=== PATIENT | male | born 1970 | race Caucasian/White ===

== ENCOUNTER 2017-05-30 09:11 | Observation (INO) | payer MEDICAID ==
[2017-05-30] VITALS (10 sets, daily range): BP systolic 110–149; BP diastolic 77–99; PULSE 56–70; RESP 18; TEMP 96.9–97.9; O2SAT 90–98
[~2017-05-30] VITALS: Ht 175.3 cm; Wt 89.8 kg
[~2017-05-30 09:11] MED LIST: TRAM50 PO; WARF7.5T4 PO
--- NOTE | 2017-05-30 09:15 | PD ---
HPI Chief Complaint: Neuro Symptoms/ Deficits Time Seen by Provider: 09:15 Travel History International Travel<30 days: No Contact w/Intl Traveler<30days: No Traveled to known affect area: No History of Present Illness HPI 47-year-old male came to the emergency room looking very anxious and teary with his mother saying that this morning after he had a bowel movement he just started feeling very different. He could not really describe very well how he was feeling. He said he felt lightheaded/dizzy and weak. He says he did not feel like his normal self. He thought he was having an "attack". He asked his girlfriend to call his mother with eventually brought him in. Upon asking patient denied any unilateral weakness. No issues with his speech that I could understand from either him or his mother. The triage nurse was having difficulty understanding his chief complain since patient could not really explain it very well and he was brought in emergently as a possible neuro symptoms. However when I started examining him and talking to him he was just very anxious and emotionally labile. He did say he had a lot of stress mainly from work and home. He smokes cigarettes occasionally and this morning he smoked a joint for the symptoms started. However he says this is something he does routinely and has been doing it for many years. He was getting ready to go to work. Patient was reminded by his mother that he had a TIA a few years ago. He is on Coumadin and sees Dr. Botello from hematology who checks his INR. He does not have a PMD. [facility] Past Medical History Narrative Medical List of his past medical, surgical, social and family history was reviewed from the nursing note. Hx Anticoagulant Therapy: Yes (COUMADIN) Anemia: Yes Autoimmune Disease: No Blood Disorders: Yes (FACTOR v LEIDEN) Cancer: No Cardiovascular Problems: Yes Chest Pain: No Congestive Heart Failure: No Cerebrovascular Accident: Yes Diabetes: No Diminished Hearing: No Deep Vein Thrombosis: Yes (December 2012) Endocrine: No Glaucoma: No Genitourinary: No Hepatitis: No Hiatal Hernia: No Hypertension: Yes Immune Disorder: No Musculoskeletal: No Neurologic: Yes Psychiatric: No Reproductive: No Respiratory: Yes (SLEEP APNEA) Sleep Apnea: Yes Thyroid Disease: No PNEUMOCCOCAL Vaccine (Year): 2 Past Surgical History Abdominal Surgery: Yes (HERNIA REPAIR-Inguinal) Appendectomy: Yes Cardiac Surgery: No Ear Surgery: No Eye Surgery: No Oral Surgery: No Pacemaker: No Thoracic Surgery: No Other Surgery: Yes (RIGHT TOES AND PARTIAL FOOT AMPUTATION) Social History Alcohol Use: Yes (5/DAY "ON WEEKENDS") Tobacco Use: Yes (ONE PPD) Substance Use: Yes (MARIJUANA) Allergies-Medications (Allergen,Severity, Reaction): Coded Allergies: Penicillin (Verified Allergy, Mild, RASH, 05/30/17) Comments List of his allergies reviewed from the nursing note. Reported Meds & Prescriptions Reported Meds & Active Scripts Active Reported Slow Release Iron ER (Ferrous Sulfate) 50 Mg Tab 50 Mg PO DAILY Centrum (Multiple Vitamins W/ Minerals) 1 Chew 1 Tab CHEW DAILY Coumadin (Warfarin) 7.5 Mg Tab 7.5 Mg PO DAILY Narrative Medication List of his home medications reviewed from the nursing note. Review of Systems Except as stated in HPI: all other systems reviewed are Neg Physical Exam Narrative GENERAL: Awake, alert, anxious, mild distress SKIN: Focused skin assessment warm/dry. HEAD: Atraumatic. Normocephalic. EYES: Pupils equal and round. No scleral icterus. No injection or drainage. ENT: No nasal bleeding or discharge. Mucous membranes pink and moist. NECK: Trachea midline. No JVD. CARDIOVASCULAR: Regular rate and rhythm. No murmur appreciated. RESPIRATORY: No accessory muscle use. Clear to auscultation. Breath sounds equal bilaterally. GASTROINTESTINAL: Abdomen soft, non-tender, nondistended. Hepatic and splenic margins not palpable. MUSCULOSKELETAL: No obvious deformities. No clubbing. No cyanosis. No edema. Partial foot amputation. NEUROLOGICAL: Awake and alert. No obvious cranial nerve deficits. Motor grossly within normal limits. Normal speech. NIH stroke score of 0 PSYCHIATRIC: Patient is very anxious and emotionally labile. Teary-eyed Data Data Last Documented VS Vital Signs Date Time Temp Pulse Resp B/P Pulse Ox O2 Delivery O2 Flow Rate FiO2 05/30/17 10:34 60 18 119/87 97 Room Air 05/30/17 09:28 97.9 Orders Complete Blood Count With Diff (05/30/17 09:29) Comprehensive Metabolic Panel (05/30/17 09:29) Creatine Kinase (Cpk) (05/30/17 09:29) Prothrombin Time / Inr (Pt) (05/30/17 09:29) Troponin I (05/30/17 09:29) Thyroid Stimulating Hormone (05/30/17 09:29) Ua Includes Microscopic (05/30/17 09:29) Ct Brain W/O Iv Contrast(Rout) (05/30/17 09:29) Blood Glucose (05/30/17 09:29) Ecg Monitoring (05/30/17 09:29) Iv Access Insert/Monitor (05/30/17 09:29) Oximetry (05/30/17 09:29) Sodium Chloride 0.9% Flush (Ns Flush) (05/30/17 09:30) Sodium Chlor 0.9% 1000 Ml Inj (Ns 1000 M (05/30/17 09:29) Alprazolam (Xanax) (05/30/17 09:30) Drug Screen, Random Urine (05/30/17 09:30) Alcohol (Ethanol) (05/30/17 09:45) Mra Brain W/O Contrast (Cow) (05/30/17 ) Admit Order (Ed Use Only) (05/30/17 10:40) Mri Brain W/O Contrast (05/30/17 ) Labs Laboratory Tests Test 05/30/17 05/30/17 05/30/17 09:45 10:15 10:20 White Blood Count 7.4 TH/MM3 Red Blood Count 5.35 MIL/MM3 Hemoglobin 15.3 GM/DL Hematocrit 46.2 % Mean Corpuscular Volume 86.3 FL Mean Corpuscular Hemoglobin 28.6 PG Mean Corpuscular Hemoglobin 33.1 % Concent Red Cell Distribution Width 13.9 % Platelet Count 254 TH/MM3 Mean Platelet Volume 9.2 FL Neutrophils (%) (Auto) 63.7 % Lymphocytes (%) (Auto) 21.5 % Monocytes (%) (Auto) 9.1 % Eosinophils (%) (Auto) 5.0 % Basophils (%) (Auto) 0.7 % Neutrophils # (Auto) 4.6 TH/MM3 Lymphocytes # (Auto) 1.6 TH/MM3 Monocytes # (Auto) 0.7 TH/MM3 Eosinophils # (Auto) 0.4 TH/MM3 Basophils # (Auto) 0.1 TH/MM3 CBC Comment DIFF FINAL Differential Comment Prothrombin Time 21.1 SEC Prothromb Time International 1.9 RATIO Ratio Sodium Level 140 MEQ/L Potassium Level 4.1 MEQ/L Chloride Level 110 MEQ/L Carbon Dioxide Level 24.2 MEQ/L Anion Gap 6 MEQ/L Blood Urea Nitrogen 26 MG/DL Creatinine 1.10 MG/DL Estimat Glomerular Filtration 71 ML/MIN Rate Random Glucose 101 MG/DL Calcium Level 8.3 MG/DL Total Bilirubin 0.4 MG/DL Aspartate Amino Transf 47 U/L (AST/SGOT) Alanine Aminotransferase 27 U/L (ALT/SGPT) Alkaline Phosphatase 58 U/L Total Creatine Kinase 240 U/L Troponin I LESS THAN 0.02 NG/ML Total Protein 7.2 GM/DL Albumin 3.4 GM/DL Thyroid Stimulating Hormone 0.691 uIU/ML 3rd Gen Ethyl Alcohol Level LESS THAN 3 MG/DL [facility] Medical Decision Making Medical Screen Exam Complete: Yes Emergency Medical Condition: Yes Medical Record Reviewed: Yes Interpretation(s) Twelve-lead EKG is reviewed by me. Normal sinus rhythm, normal axis, call T waves, first-degree AV block. Heart rate of 66 bpm. Differential Diagnosis TIA, CVA, intracranial bleed, anxiety Narrative Course 10:33 AM since patient appeared to be so anxious I offered him some Xanax which he agreed to. CT scan was done and was resulted as encephalomalacia but stable from last CT on the left parietal hemisphere. I went back to discuss this with the patient and at this point it was established that patient did have a stroke and not a TIA somewhere between [id number]. He remembered and also his mother that his entire right side was very weak that time. I also read the report from Dr. Botello who is the patient's senior payroll manager and the reason patient is on Coumadin is for factor V Leiden deficiency and history of recurrent arterial thrombosis. In fact that was the reason he lost part of his right foot. His last INR in March was 2.2. Today his INR is 1.9. Given all this his condition seems concerning and I decided to admit him for observation. I put a call out for his heme oncologist as well as our neurologist. 10:47 AM I just spoke with Dr. Botello who happens to be his oncologist and knows him in detail. But he said that he hasn't seen him in the past few months. Patient does have history of antiphospholipid antibody as well which does put him at a high risk for cerebrovascular disease. He did have history of cocaine abuse in the past. Patient still has not given us a urine sample. I 've asked the nurse to straight catheter him. Awaiting for Dr. Esquivel to call back. My question to him would be if the patient is a candidate for heparinization since his INR is subtherapeutic. The hospitalist has accepted this patient for observation. 11:41 AM I discussed the case with Dr. Esquivel from neurology who just called back. As per him it would be okay to start the patient on heparin drip as per the stroke protocol but no bolus. This has been ordered by me. He wanted Dr. Botello to be officially consult it as well. He agreed with the MRI and he'll follow-up on the patient and the MRI result. He wanted the patient to get Coumadin at 10 mg he the INR tomorrow. I'll convey this to the hospitalist. Critical Care Narrative Aggregate critical care time was 30 minutes. Time to perform other separately billable procedures was not included in the critical care time. My time did not include minutes spent treating any other patients simultaneously or on activities that did not directly contribute to the patient's treatment. The services I provided to this patient were to treat and/or prevent clinically significant deterioration that could result in: TIA, heparin bolus as per the stroke protocol I provided critical care services requiring my management, as noted below: Chart data review, documentation time, medication orders and management, vital sign assessments/reviewing monitor data, ordering and reviewing lab tests, ordering and interpreting/reviewing x-rays and diagnostic studies, care of the patient and discussion of the patient with the admitting physicians. Procedures EKG Prior to Arrival: No Physician Communication Physician Communication Dr. Botello, Dr. Esquivel Diagnosis Primary Impression: TIA (transient ischemic attack) Qualified Code: G45.9 - Transient cerebral ischemia, unspecified type Admitting Information Admitting Physician Requests: Observation Anthony Gibson MD May 30, 2017 09:15
[2017-05-30] MEDS ORDERED: SODIUM CHLOR 0.9% 1000 ML INJ 1,000 ML IV SCH (09:29)
[2017-05-30] MEDS ORDERED: ALPRAZolam 0.5 MG TAB PO ONE (09:30)
[2017-05-30] MEDS ORDERED: SODIUM CHLORIDE 0.9% FLUSH 5 ML FLUSH IV FLUSH PRN (09:30)
[2017-05-30] MEDS ORDERED: CENTCHW4 CHEW (09:32)
[2017-05-30] MEDS ORDERED: COUM7.5T PO (09:32)
[2017-05-30] MEDS ORDERED: SLOW50TA PO (09:32)
[2017-05-30 10:06] LABS: AUTOMATED NEUTROPHIL # 4.6 TH/MM3 (1.8-7.7); BASOPHIL # 0.1 TH/MM3 (0-0.2); BASOPHIL % 0.7 % (0.0-2.0); EOSINOPHIL # 0.4 TH/MM3 (0-0.4); HEMATOCRIT 46.2 % (39.0-51.0); HEMO FLAGS DIFF FINAL; LYMPH % 21.5 % (9.0-44.0); LYMPHOCYTE # 1.6 TH/MM3 (1.0-4.8); MEAN CELL VOLUME 86.3 FL (80.0-100.0); MEAN CORPUSCULAR HEMOGLOBIN 28.6 PG (27.0-34.0); MEAN CORPUSCULAR HGB CONC 33.1 % (32.0-36.0); MONO % 9.1 % (0.0-8.0); NEUT % 63.7 % (16.0-70.0); PLATELET COUNT 254 TH/MM3 (150-450); RED BLOOD COUNT 5.35 MIL/MM3 (4.50-5.90); RED CELL DISTRIBUTION WIDTH 13.9 % (11.6-17.2); WHITE BLOOD COUNT 7.4 TH/MM3 (4.0-11.0)
--- NOTE | 2017-05-30 10:14 | RADRPT ---
EXAM DATE/TIME: 05/30/2017 09:51 [facility] COMPARISON: CT BRAIN W/O CONTRAST, October 10, 2015, 9:53. INDICATIONS : Altered mental status. RADIATION DOSE: 63.45 CTDIvol (mGy) MEDICAL HISTORY : Cerebrovascular disease. Deep venous thrombosis. Hypertension. SURGICAL HISTORY : Appendectomy. ENCOUNTER: Initial ACUITY: 2 days PAIN SCALE: 2/10 LOCATION: cranial TECHNIQUE: Multiple contiguous axial images were obtained of the head. Using automated exposure control and adj ustment of the mA and/or kV according to patient size, radiation dose was kept as low as reasonably a chievable to obtain optimal diagnostic quality images. DICOM format image data is available electro nically for review and comparison. FINDINGS: CEREBRUM: Stable encephalomalacia in the left posterior parietal high convexities The ventricles are normal for age. No evidence of midline shift, mass lesion, hemorrhage or acute infarction. No extra-axial flu id collections are seen. POSTERIOR FOSSA: The cerebellum and brainstem are intact. The 4th ventricle is midline. The cerebellopontine angle i s unremarkable. EXTRACRANIAL: The visualized portion of the orbits is intact. SKULL: The calvaria is intact. No evidence of skull fracture. CONCLUSION: 1. Stable region of encephalomalacia in the left posterior parietal high convexities consistent with old infarct. 2. Otherwise, no acute intracranial abnormality. Sd Hall MD on May 30, 2017 at 10:09 Board Certified Radiologist. This report was verified electronically.
[2017-05-30 10:25] LABS: CHLORIDE 110 MEQ/L (98-107); SODIUM (NA) 140 MEQ/L (136-145)
[2017-05-30 10:29] LABS: ANION GAP 6 MEQ/L (5-15); BICARBONATE 24.2 MEQ/L (21.0-32.0); BLOOD UREA NITROGEN 26 MG/DL (7-18)
[2017-05-30 10:31] LABS: INTERNATIONAL NORMALIZED RATIO 1.9 RATIO; PROTHROMBIN TIME - PATIENT 21.1 SEC (9.8-11.6)
[2017-05-30 10:32] LABS: ALT (GPT) 27 U/L (12-78); AST (GOT) 47 U/L (15-37); GLOMERULAR FILTRATION RATE 71 ML/MIN (>89)
[2017-05-30 10:33] LABS: TOTAL BILIRUBIN ADULT 0.4 MG/DL (0.2-1.0)
[2017-05-30 10:34] LABS: POTASSIUM 4.1 MEQ/L (3.5-5.1)
[2017-05-30 10:35] LABS: ALKALINE PHOSPHATASE 58 U/L (45-117); CREATINE KINASE 240 U/L (39-308)
[2017-05-30 11:07] LABS: BLOOD, URINE NEG (NEG); GLUCOSE,URINE NEG (NEG); KETONE, URINE NEG (NEG); NITRITE,URINE NEG (NEG); PH, URINE 6.5 (5.0-8.5)
[2017-05-30 11:13] LABS: URINE COLOR YELLOW (YELLW/STRAW); WBC, URINE 0-2 /hpf (0-5)
[2017-05-30 11:14] LABS: SQUAMOUS EPITHELIAL CELL URINE 0-5 /hpf (0-5)
[2017-05-30 11:16] LABS: AMPHETAMINE, URINE NEG (NEG); BARBITURATES, URINE NEG (NEG)
[2017-05-30 11:17] LABS: COCAINE, URINE NEG (NEG)
[2017-05-30] MEDS ORDERED: ACETAMINOPHEN 325 MG TAB PO PRN ×2 (11:30)
[2017-05-30] MEDS ORDERED: NALOXONE HCL 0.4 MG/ML AMP IV PRN (11:30)
[2017-05-30] MEDS ORDERED: SODIUM CHLORIDE 0.9% FLUSH 10 ML FLUSH IV FLUSH PRN (11:30)
--- NOTE | 2017-05-30 12:31 | RADRPT ---
EXAM DATE/TIME: 05/30/2017 12:13 [facility] COMPARISON: CT BRAIN W/O CONTRAST, November 21, 2013, 13:02. CT BRAIN W/O CONTRAST, October 10, 2015, 9:53. CT BRAIN W/O CONTRAST, May 30, 2017, 9:51. INDICATIONS : TIA. Weakness. MEDICAL HISTORY : Hypertension. Deep venous thrombosis. SURGICAL HISTORY : Appendectomy. ENCOUNTER: Initial ACUITY: 1 day PAIN SCORE: 0/10 LOCATION: head TECHNIQUE: Multiplanar, multisequence MRI of the brain was performed without contrast. FINDINGS: CEREBRUM: The ventricles are normal for age. No evidence of midline shift, mass lesion, hemorrhage or acute in farction. No extraaxial fluid collections are seen. Encephalomalacia is noted within the left poste rior parietal lobe and to a lesser extent right posterior parietal lobe consistent with old infarcts. The pituitary gland and suprasellar cistern are normal in configuration. WHITE MATTER: No significant signal abnormalities are seen in the white matter. POSTERIOR FOSSA: The cerebellum and brainstem are intact. The 4th ventricle is midline. The cerebellopontine angle is unremarkable. The cerebellar tonsils are normal in position. DIFFUSION IMAGING: No focal areas of restricted diffusion are seen. No evidence of acute infarction. EXTRACRANIAL: The visualized portions of the orbits and paranasal sinuses are unremarkable. CONCLUSION: 1. Encephalomalacia is noted within the left posterior parietal lobe and to a lesser extent right pos terior parietal lobe consistent with old infarcts. 2. No acute infarct, acute hemorrhage, mass effect, or extra-axial fluid collections. Gregory Muhammad MD on May 30, 2017 at 12:24 Board Certified Radiologist. This report was verified electronically.
[2017-05-30] MEDS: HEPARIN-D5W INJ 250 ML IV SCH (12:41)
[2017-05-30 12:51] LABS: APTT (PATIENT) 36.7 SEC (24.3-30.1)
[2017-05-30 12:55] LABS: HEMATOCRIT 45.2 % (39.0-51.0); MEAN CELL VOLUME 85.5 FL (80.0-100.0); MEAN CORPUSCULAR HEMOGLOBIN 28.4 PG (27.0-34.0); MEAN CORPUSCULAR HGB CONC 33.2 % (32.0-36.0); PLATELET COUNT 226 TH/MM3 (150-450); RED BLOOD COUNT 5.28 MIL/MM3 (4.50-5.90); RED CELL DISTRIBUTION WIDTH 13.4 % (11.6-17.2); REVIEW FLAG FINAL; WHITE BLOOD COUNT 6.8 TH/MM3 (4.0-11.0)
--- NOTE | 2017-05-30 12:56 | RADRPT ---
EXAM DATE/TIME: 05/30/2017 12:13 [facility] COMPARISON: MRA BRAIN W/O CONTRAST, July 23, 2013, 17:09. INDICATIONS : TIA. MEDICAL HISTORY : Deep venous thrombosis. Hypertension. SURGICAL HISTORY : Appendectomy. ENCOUNTER: Initial ACUITY: 1 day PAIN SCORE: 0/10 LOCATION: Head Please note a normal MRA of the brain does not entirely exclude the possibility of a small aneurysm, nor the possibility of distal intracranial vessel disease. TECHNIQUE: 3D time of flight MRA was performed. Source images, multiplanar STS MIP, and 3D volume MIP reconstru ctions were reviewed. FINDINGS: Again, there is absence of the right A1 segment. The bilateral anterior cerebral arteries fill via t he left A1 segment and a patent anterior communicating artery. The middle cerebral arteries are alonzo nt without significant stenosis or occlusion. The upper cervical, petrous, cavernous and supraclinoi d internal carotid arteries are patent without significant stenosis or occlusion. There are patent b ilateral posterior communicating arteries. The right posterior cerebral artery fills solely from the posterior communicating artery. The left posterior cerebral artery fills from the basilar system an d the patent left posterior cerebral artery. The posterior cerebral arteries are patent without sign ificant stenosis. The basilar artery and upper most portions of the vertebral arteries are patent wi thout significant stenosis or occlusion. No aneurysm formation is noted. CONCLUSION: 1. Patent bilateral posterior communicating arteries and anterior communicating artery. 2. Absent right A1 segment. 3. No significant stenosis, occlusion or aneurysm formation. Gregory Muhammad MD on May 30, 2017 at 12:46 Board Certified Radiologist. This report was verified electronically.
[2017-05-30] MEDS: SODIUM CHLOR 0.9% 1000 ML INJ 1,000 ML IV SCH ×2 (14:24→21:16)
--- NOTE | 2017-05-30 14:59 | HHI.HP ---
[facility] No Primary Care Physician Admission Diagnosis TIA. Diagnoses: Chief Complaint: Lightheadedness Travel History International Travel<30 Days: No Contact w/Intl Traveler <30 Da: No Traveled to Known Affected Are: No History of Present Illness The patient is a 47-year-old male with a past medical history of factor V Leiden and CVA who is presenting to the hospital with dizziness and lightheadedness. He said the symptoms started yesterday. He said it was accompanied by a throbbing headache located at both of his temples. He said he took a couple of Advils and that didn't seem to improve his symptoms much. He denied experiencing the room spinning around but said that he felt a sensation of feeling lightheaded. He also mentioned that he has been feeling a little foggy or fuzzy and endorsed episodes of confusion. He said he had to call out of work today because of his symptoms and he knew he did not feel right. He said the only medication change recently was decreasing his Coumadin from 10 mg daily to 7.5 mg daily. He denies any vision changes. Denies any chest pain or shortness of breath. He denies any fevers. He did have some abdominal cramping earlier this morning which resolved after a bowel movement. He states that following his stroke he did have left-sided numbness that has since resolved. He says he follows with a [employer] regularly. 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 Factor V Leiden mutation Antiphospholipid antibody syndrome Sleep apnea Iron deficiency anemia Past Surgical History Appendectomy Right forefoot amputation Inguinal hernia repair Allergies: Coded Allergies: Penicillin (Verified Allergy, Mild, RASH, 05/30/17) Active Ordered Medications Current Medications Medications (Trade) Dose Ordered Sig/Nereida Route Start Time Stop Time Status Last Admin (Theragran M Tab) 1 tab DAILY PO 05/31/17 09:00 Ferrous Sulfate 325 mg 325 mg DAILY PO 05/31/17 09:00 Pharmacy Profile Note 0 ml @ 0 mls/hr UNSCH OTHER 05/30/17 11:30 (NS 1000 ml Inj) 1,000 ml @ 75 mls/hr [id number] IV 05/30/17 11:22 05/31/17 14:01 05/30/17 14:24 (NS Flush) 2 ml UNSCH PRN IV FLUSH 05/30/17 11:30 (NS Flush) 2 ml BID IV FLUSH 05/30/17 21:00 (Tylenol) 650 mg Q4H PRN PO 05/30/17 11:30 (Tylenol) 650 mg Q6H PRN PO 05/30/17 11:30 (Narcan Inj) 0.4 mg UNSCH PRN IV 05/30/17 11:30 Senna/Docusate Sodium 1 tab 1 tab BID PO 05/30/17 21:00 (Heparin-D5W Inj) 250 ml @ 0 mls/hr TITRATE IV 05/30/17 11:45 05/30/17 12:41 (Coumadin) 10 mg DAILY@16 PO 05/30/17 16:00 Family History The patient denies pertinent family history. Physical Exam Vital Signs Vital Signs Date Time Temp Pulse Resp B/P Pulse Ox O2 Delivery O2 Flow Rate FiO2 05/30/17 12:40 58 18 110/81 98 05/30/17 11:03 58 18 119/87 97 Room Air 05/30/17 10:34 60 18 119/87 97 Room Air 05/30/17 09:39 70 18 140/87 98 Room Air 05/30/17 09:28 97.9 68 18 135/93 97 Physical Exam GENERAL: Resting comfortably. SKIN: Focused skin assessment warm/dry. HEAD: Atraumatic. Normocephalic. EYES: Pupils equal and round. No scleral icterus. No injection or drainage. ENT: No nasal bleeding or discharge. Mucous membranes pink and moist. NECK: Trachea midline. No JVD. CARDIOVASCULAR: Regular rate and rhythm. No murmur appreciated. RESPIRATORY: No accessory muscle use. Clear to auscultation. Breath sounds equal bilaterally. GASTROINTESTINAL: Abdomen soft, mild tenderness in the lower quadrants, nondistended. Hepatic and splenic margins not palpable. MUSCULOSKELETAL: No obvious deformities. No clubbing. No cyanosis. No edema. Partial foot amputation on right. NEUROLOGICAL: Awake and alert. No obvious cranial nerve deficits. Motor grossly within normal limits. Normal speech. PSYCHIATRIC: Mood and affect appropriate. Laboratory Laboratory Tests Test 05/30/17 05/30/17 05/30/17 05/30/17 09:45 10:15 10:20 10:55 White Blood Count 7.4 Red Blood Count 5.35 Hemoglobin 15.3 Hematocrit 46.2 Mean Corpuscular Volume 86.3 Mean Corpuscular Hemoglobin 28.6 Mean Corpuscular Hemoglobin 33.1 Concent Red Cell Distribution Width 13.9 Platelet Count 254 Mean Platelet Volume 9.2 Neutrophils (%) (Auto) 63.7 Lymphocytes (%) (Auto) 21.5 Monocytes (%) (Auto) 9.1 Eosinophils (%) (Auto) 5.0 Basophils (%) (Auto) 0.7 Neutrophils # (Auto) 4.6 Lymphocytes # (Auto) 1.6 Monocytes # (Auto) 0.7 Eosinophils # (Auto) 0.4 Basophils # (Auto) 0.1 CBC Comment DIFF FINAL Differential Comment Prothrombin Time 21.1 Prothromb Time International 1.9 Ratio Sodium Level 140 Potassium Level 4.1 Chloride Level 110 Carbon Dioxide Level 24.2 Anion Gap 6 Blood Urea Nitrogen 26 Creatinine 1.10 Estimat Glomerular Filtration 71 Rate Random Glucose 101 Calcium Level 8.3 Total Bilirubin 0.4 Aspartate Amino Transf 47 (AST/SGOT) Alanine Aminotransferase 27 (ALT/SGPT) Alkaline Phosphatase 58 Total Creatine Kinase 240 Troponin I LESS THAN 0.02 Total Protein 7.2 Albumin 3.4 Thyroid Stimulating Hormone 0.691 3rd Gen Ethyl Alcohol Level LESS THAN 3 Urine Color YELLOW Urine Turbidity CLEAR Urine pH 6.5 Urine Specific [place] 1.022 Urine Protein NEG Urine Glucose (UA) NEG Urine Ketones NEG Urine Occult Blood NEG Urine Nitrite NEG Urine Bilirubin NEG Urine Leukocyte Esterase NEG Urine WBC 0-2 Urine Squamous Epithelial 0-5 Cells Urine Opiates Screen NEG Urine Barbiturates Screen NEG Urine Amphetamines Screen NEG Urine Benzodiazepines Screen NEG Urine Cocaine Screen NEG Urine Cannabinoids Screen POS Test 05/30/17 12:30 White Blood Count 6.8 Red Blood Count 5.28 Hemoglobin 15.0 Hematocrit 45.2 Mean Corpuscular Volume 85.5 Mean Corpuscular Hemoglobin 28.4 Mean Corpuscular Hemoglobin 33.2 Concent Red Cell Distribution Width 13.4 Platelet Count 226 Mean Platelet Volume 8.7 Activated Partial 36.7 Thromboplast Time Result Diagram: 05/30/17 1230 05/30/17 1020 Imaging Last Impressions Head CT 05/30/17 0929 Signed Impressions: Service Date/Time: Tuesday, May 30, 2017 09:51 - CONCLUSION: 1. Stable region of encephalomalacia in the left posterior parietal high convexities consistent with old infarct. 2. Otherwise, no acute intracranial abnormality. Sd Hall MD Brain MRI 05/30/17 0000 Signed Impressions: Service Date/Time: Tuesday, May 30, 2017 12:13 - CONCLUSION: 1. Encephalomalacia is noted within the left posterior parietal lobe and to a lesser extent right posterior parietal lobe consistent with old infarcts. 2. No acute infarct, acute hemorrhage, mass effect, or extra-axial fluid collections. Gregory Muhammad MD Assessment and Plan Assessment and Plan Lightheadedness/ Dizziness/ Confusion The pt has a history of CVA. INR was 1.[address], MRI/MRA without acute abnormality. Neurology consulted by the ED. - neuro checks. - smoking cessation instruction. - follow up with neurology. - telemetry. - check orthostatics. - continue Coumadin and follow INR. Heparin gtt recommended by neurology. Factor V Leiden The pt follows with Dr. Bradley. - hematology consult pending. - continue Coumadin/ heparin. PPx: Coumadin/ Heparin Code Status Full Discussed Condition With Pt, Dr. Gibson, nurse Rayshawn Chaudhari DO May 30, 2017 14:58
[2017-05-30] MEDS ORDERED: WARFARIN SOD 7.5 MG TAB PO SCH (16:00)
[2017-05-30] MEDS ORDERED: WARFARIN SOD 10 MG TAB PO SCH (16:00)
[2017-05-30] MEDS ORDERED: BENZOCAINE 6 MG/MENTHOL 10 MG LOZENGE BUCCAL PRN (17:00)
[2017-05-30 18:40] LABS: APTT (PATIENT) 59.9 SEC (24.3-30.1)
[2017-05-30] MEDS: SODIUM CHLORIDE 0.9% FLUSH 10 ML FLUSH IV FLUSH SCH (21:00)
[2017-05-30] MEDS: DOCUSATE SODIUM 50 MG/SENNA 8.6 MG TAB PO SCH (21:15)
[2017-05-31] VITALS: BP 128/88; PULSE 55; RESP 18; TEMP 95.6; O2SAT 96
[2017-05-31 04:00] VITALS: BP 130/82; PULSE 58; RESP 18; TEMP 96.4; O2SAT 97
[2017-05-31 05:32] LABS: AUTOMATED NEUTROPHIL # 5.1 TH/MM3 (1.8-7.7); BASOPHIL # 0.1 TH/MM3 (0-0.2); BASOPHIL % 1.5 % (0.0-2.0); EOSINOPHIL # 0.4 TH/MM3 (0-0.4); EOSINOPHIL % 4.4 % (0.0-4.0); HEMATOCRIT 44.5 % (39.0-51.0); HEMO FLAGS DIFF FINAL; LYMPH % 25.7 % (9.0-44.0); LYMPHOCYTE # 2.1 TH/MM3 (1.0-4.8); MEAN CELL VOLUME 85.1 FL (80.0-100.0); MEAN CORPUSCULAR HEMOGLOBIN 28.6 PG (27.0-34.0); MEAN CORPUSCULAR HGB CONC 33.6 % (32.0-36.0); MONO % 7.5 % (0.0-8.0); NEUT % 60.9 % (16.0-70.0); PLATELET COUNT 215 TH/MM3 (150-450); RED BLOOD COUNT 5.23 MIL/MM3 (4.50-5.90); RED CELL DISTRIBUTION WIDTH 13.1 % (11.6-17.2); WHITE BLOOD COUNT 8.3 TH/MM3 (4.0-11.0)
[2017-05-31 05:45] LABS: ANION GAP 5 MEQ/L (5-15); BICARBONATE 24.6 MEQ/L (21.0-32.0); BLOOD UREA NITROGEN 17 MG/DL (7-18); CHLORIDE 112 MEQ/L (98-107); POTASSIUM 3.9 MEQ/L (3.5-5.1); SODIUM (NA) 142 MEQ/L (136-145)
[2017-05-31 05:46] LABS: APTT (PATIENT) 74.8 SEC (24.3-30.1)
[2017-05-31 05:48] LABS: ALT (GPT) 23 U/L (12-78); AST (GOT) 17 U/L (15-37); GLOMERULAR FILTRATION RATE 103 ML/MIN (>89)
[2017-05-31 05:52] LABS: INTERNATIONAL NORMALIZED RATIO 2.2 RATIO; PROTHROMBIN TIME - PATIENT 24.8 SEC (9.8-11.6)
[2017-05-31 05:57] LABS: ALKALINE PHOSPHATASE 54 U/L (45-117); TOTAL BILIRUBIN ADULT 0.5 MG/DL (0.2-1.0)
--- NOTE | 2017-05-31 06:53 | MB ---
cc: NATHANAEL OSHEA M.D. DATE OF CONSULTATION 05/30/2017 REASON FOR CONSULTATION Possible TIA. HISTORY OF PRESENT ILLNESS Mr. Villaseñor is a 47-year-old man who has a history of two strokes in the past. He also has a history of Factor V Leiden gene mutation and antiphospholipid antibody syndrome. He takes Coumadin. He states that this morning after he had a bowel movement, he felt very weak, somewhat lightheaded. He had no focal weakness. He may have had some slurred speech. He was concerned that he might have been having a stroke so presented to the ER. Denies any unilateral symptoms. His NIH stroke scale in the ER was 0, therefore he was felt not to the TPA candidate. He is on Coumadin. His INR is 1.9. He has since been started on IV heparin. PAST MEDICAL HISTORY 1. History of Factor V Leiden gene mutation. 2. History of antiphospholipid syndrome. 3. 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 ALLERGIES PENICILLIN MEDICATIONS He takes: 1. Coumadin 7.5 mg daily 2. Iron sulfate NEUROLOGIC EXAMINATION Blood pressure is 144/98 standing, supine 128/84, pulse 56, respirations 18, temperature 96. Higher cortical functions normal. Cranial nerves intact. Motor exam, he has no focal deficit. MRI of the brain shows encephalomalacia in the left posterior parietal cortex and right posterior parietal lobe consistent with old strokes. No acute infarct is identified. Head MR angiogram, absent right A1 segment. No significant stenosis or occlusion is identified. CT of the brain shows encephalomalacia left pressure parietal area, high convexity consistent with old stroke. No acute change present. LABORATORY DATA White count 6800, hemoglobin 15, hematocrit 45%, platelet count 226,000, PT 21.1, INR 1.9, APTT 59.9 on IV heparin. Sodium is 140, potassium 4.1, chloride 110, CO2 24.2, BUN is 26, creatinine 1.1, glucose 101. IMPRESSION The episode he had was probably syncope. It May have been related to vasovagal reaction or Valsalva during bowel movement. I doubt TIA or stroke. RECOMMENDATIONS I recommend increasing the INR above 2 per hematology recommendation. I do not think any additional neurological evaluation is necessary at this time, however, we will proceed with a carotid ultrasound and an echocardiogram to be sure there is no evidence of any carotid stenosis or cardiac abnormality that could have caused presyncope. Also monitor cardiac telemetry to rule out arrhythmia. MD ANA Diaz/VALENCIA /10:25 PM /6:42 AM
--- NOTE | 2017-05-31 07:17 | MB ---
cc: JORDYN GARCES DATE OF 1970 DATE OF CONSULTATION 05/30/[address] [facility]. REASON FOR CONSULTATION Patient with a history of hypercoagulable state with Factor V Leiden and history of CVA. CHIEF COMPLAINT Dizziness, headaches. Heavy-headedness. HISTORY OF PRESENT ILLNESS This is a 47-year-old male who has a past medical history of Factor V Leiden and hypercoagulable state. 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 He also has had ischemic strokes. He has been on anticoagulation since 2012. He has a history of noncompliance with treatment and follow-ups in the clinic. The patient is currently being managed in the Hematology Clinic for INR followups. He presented to the emergency room today with headaches, dizziness and states that he had a "fogginess" with confusion this morning. In the emergency room the patient was found to have a subtherapeutic INR of 1.9. The patient tells me that his Coumadin dose was reduced recently from 10 mg daily to 7.5 mg. In the emergency department the patient underwent a brain MRA which showed patent bilateral posterior communicating arteries and anterior communicating arteries. There was no significant stenosis, occlusion or aneurysm formation. Brain MRI showed encephalomalacia in the left posterior parietal lobe, but there was no acute infarct, hemorrhage, mass effect or other abnormalities. He also had a repeat follow-up CT scan of the head. Which did not reveal any acute intracranial abnormalities. The patient has been evaluated by Neurology. He does not have any focal symptoms. At this time he is awake and alert and conversing. His speech is coherent. He is sitting up by the side of the bed. He states that he feels like going home tomorrow. REVIEW OF SYSTEMS A comprehensive 14-point review of systems was completed which is negative except as described in the HPI. PAST MEDICAL HISTORY 1. Factor V Leidein, hypercoagulable state. 2. CVA. 3. 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 4. Antiphospholipid antibody syndrome. 5. Sleep apnea. 6. History of iron deficiency. PAST SURGICAL HISTORY 1. Appendectomy. 2. Right forefoot amputation. 3. Inguinal hernia repair. FAMILY HISTORY Reviewed and is noncontributory to this admission. SOCIAL HISTORY Positive for alcohol abuse.tobacco abuse. marijuana use, cocaine use . However, he did admit previously to daily marijuana use. MEDICATIONS 1. Ferrous sulfate 325 mg p.o. daily. 2. Emilee-Colace p.o. b.i.d. 3. Coumadin 10 mg p.o. daily. 4. Heparin drip GTT. 5. Tylenol 650 mg 4 hours p.r.n. 6. Morphine sulfate 5 mg IV q. 3 hours p.r.n. ALLERGIES He is allergic to PENICILLIN. PHYSICAL EXAMINATION VITAL SIGNS: Blood pressure is 136/77, pulse in the 60s, temperature is 97.6, O2 sats are 96% on room air. GENERAL: A well-developed, well-nourished male in no apparent distress. HEENT: Pupils are equal, round, reactive to light. EOMI. No oral thrush. No oral lesions. NECK: Supple. No JVD, no bruits, no lymphadenopathy. CHEST: Clear to auscultation bilaterally. CARDIAC: S1, S2. Regular rate and rhythm. ABDOMEN: Soft, nontender, nondistended. Bowel sounds are present. EXTREMITIES: Right lower extremity partial amputation noted. PSYCHIATRIC: Mood and affect is appropriate. NEURO: All cranial nerves are grossly intact. No focal deficits. LABORATORY DATA WBC 6.8, hemoglobin 15, MCV is 85.5, platelet count is 226. Serum chemistries show sodium of 140, potassium 4.1, chloride 110, CO2 24.2, BUN 26, creatinine 1.1, GFR is 71, glucose is 101, calcium is 8.3, AST is 47, ALT is 27, alk phos 58, total creatinine is 240, total protein is 7.2, albumin is 3.4. Coags - INR was 1.9. IMAGING STUDIES Reviewed in the EMR and discussed in the HPI above. ASSESSMENT AND PLAN This is a 47-year-old male with a past medical history of Factor V Leiden/hypercoagulable state, history of arterial thrombosis, multiple CVAs who is on chronic anticoagulation. He presents to the emergency department with headaches, dizziness and not feeling well. In the emergency department he was found to be subtherapeutic for Coumadin. 1. Headaches/mental fogginess. There is no evidence of any stroke. I agree with neurological evaluation. The patient does appear to have substance abuse issues as well. Upon further questioning he did admit to tobacco abuse, occasional alcohol intake as well as daily marijuana use. The above symptoms could be related to consumption of polysubstances. 2. Hypercoagulable state. His INR is subtherapeutic. I advised him to be compliant with his Coumadin. He is currently on heparin. I would recommend restarting the Coumadin. If his INR is above 2, he can be discharged. He needs to follow up in the hematology clinic. The patient follows with Dr. Bradley. Due to his history of arterial thrombosis and multiple ischemic strokes, it would be preferable to keep his INR round 2.5 and above/closer to 3. This was discussed in detail with the patient. 3. Elevated LFT: AST is greater than ALT. ? alcohol abuse. Thank you for allowing me to participate in the care of this patient. The patient can be discharged from the hematology standpoint once his INR is therapeutic and he is also cleared by Neurology. MD OTILIA Bryson/CHEN[place] /12:32 AM /6:54 AM [place]
[2017-05-31] MEDS: DOCUSATE SODIUM 50 MG/SENNA 8.6 MG TAB PO SCH (08:28)
[2017-05-31] MEDS: SODIUM CHLORIDE 0.9% FLUSH 10 ML FLUSH IV FLUSH SCH (08:28)
[2017-05-31 08:59] VITALS: O2SAT 97
[2017-05-31] MEDS ORDERED: FERROUS SULFATE 325 MG (65 MG ELEMENTAL IRON) TAB PO SCH (09:00)
[2017-05-31] MEDS ORDERED: MULTIVITAMINS/MINERALS THERAPEUTIC TAB PO SCH (09:00)
--- NOTE | 2017-05-31 09:00 | RADRPT ---
EXAM DATE/TIME: 05/31/2017 08:03 [place] COMPARISON: US CAROTID ARTERIES, March 24, 2013, 12:19. INDICATIONS : Presyncope. MEDICAL HISTORY : Hyperparathyroidism. Deep venous thrombosis. CVA. Sleep apnea. Anemia. Anxiety. Anticoagulant thera py, Coumadin. SURGICAL HISTORY : Appendectomy. Inguinal hernia repair. Half of right foot removed due to blood clots. Collar bone. ENCOUNTER: Initial ACUITY: 1 day PAIN SCORE: 1/10 LOCATION: Bilateral neck PEAK SYSTOLIC VELOCITIES (cm/sec): ICA/CCA RATIO: Right: 0.8 Left: 0.8 ICA: Right: 56 Left: 69 CCA: Right: 69 Left: 83 ECA: Right: 93 Left: 90 VERTEBRAL: Right: 34 antegrade Left: 44 antegrade Elevated flow velocities and ICA/CCA ratios have been found to correlate with increased degrees of vessel stenosis, calculated as percentage of diameter relative to a normal segment of distal ICA/CCA FINDINGS: RIGHT CAROTID: Minimal calcified plaque in the right internal with no significant stenosis. The waveforms are withi n normal limits. LEFT CAROTID: No significant stenosis is visualized. The waveforms are within normal limits. VERTEBRAL ARTERIES: Antegrade flow is seen in both vertebral arteries. MISCELLANEOUS: None. CONCLUSION: 1. Minimal calcified plaque in the right internal carotid artery with no significant stenosis. 2. Otherwise negative with no sonographic or Doppler findings of a hemodynamically significant stenos is. Antegrade flow in both vertebral arteries. Alvin Laura MD on May 31, 2017 at 8:57 Board Certified Radiologist. This report was verified electronically.
[2017-05-31 10:08] VITALS: BP 134/93; PULSE 67; RESP 16; TEMP 97.5; O2SAT 98
[2017-05-31] MEDS: HEPARIN-D5W INJ 250 ML IV SCH (11:03)
--- NOTE | 2017-05-31 11:25 | ECHRPT ---
Indication: PRE SYNCOPE CONCLUSIONS Normal left ventricular size. Possible mild concentric left ventricular hypertrophy. The left ventricular systolic function is low normal with an estimated ejection fraction 50%. No regional wall motion abnormalities are present. The left atrial size is upper limits of normal. Mitral valve has [id number] mitral valve regurgitation. There is mild tricuspid valve regurgitation. BP: 130 / 82 HR: 58 Rhythm: Sinus MEASUREMENTS (Male / Female) Normal Values Technical Quality:Fair 2D ECHO LV Diastolic Diameter PLAX 3.3 cm 4.2 - 5.9 / 3.9 - 5.3 cm LV Systolic Diameter PLAX 2.8 cm IVS Diastolic Thickness 1.2 cm 0.6 - 1.0 / 0.6 - 0.9 cm LVPW Diastolic Thickness 1.2 cm 0.6 - 1.0 / 0.6 - 0.9 cm LV Relative Wall Thickness 0.7 LVOT Diameter 2.4 cm Aortic Root Diameter 3.2 cm LA Systolic Diameter LX 1.7 cm 3.0 - 4.0 / 2.7 - 3.8 cm M-MODE AV Cusp Separation MM 2.3 cm DOPPLER AV Peak Velocity 135.0 cm/s AV Peak Gradient 7.3 mmHg AV Mean Gradient 4.0 mmHg AV Velocity Time Integral 25.7 cm LVOT Peak Velocity 80.1 cm/s LVOT Peak Gradient 2.6 mmHg LVOT Velocity Time Integral 13.8 cm LVOT Cardiac Index 1718.4 cm/minm AV Area Cont Eq vti 2.4 cm AV Area Cont Eq pk 2.7 cm Mitral E Point Velocity 90.3 cm/s Mitral A Point Velocity 84.9 cm/s Mitral E to A Ratio 1.1 LV E' Lateral Velocity 10.6 cm/s Mitral E to LV E' Lateral Ratio 8.5 LV E' Septal Velocity 7.3 cm/s Mitral E to LV E' Septal Ratio 12.4 TR Peak Velocity 102.0 cm/s TR Peak Gradient 4.2 mmHg PV Peak Velocity 92.5 cm/s PV Peak Gradient 3.4 mmHg FINDINGS LEFT VENTRICLE Normal left ventricular size. Possible mild concentric left ventricular hypertrophy. The left ventricular systolic function is low normal with an estimated ejection fraction 50%. No regional wall motion abnormalities are present. Left ventricular diastolic function parameters are normal. RIGHT VENTRICLE Normal right ventricular size and systolic function. LEFT ATRIUM The left atrial size is upper limits of normal. RIGHT ATRIUM The right atrial size is normal. MITRAL VALVE Mitral valve has [id number] mitral valve regurgitation. AORTIC VALVE Trileaflet aortic valve. No aortic valve stenosis or regurgitation. TRICUSPID VALVE Structurally normal tricuspid valve. There is mild tricuspid valve regurgitation. PULMONARY VALVE No pulmonary valve regurgitation or stenosis. PERICARDIUM No pericardial effusion. Eliseo Graves MD (Electronically Signed) Final Date:31 May 2017 11:24
--- NOTE | 2017-05-31 11:40 | HHI.DCPOC ---
Discharge Care Plan Diagnosis: (1) Dehydration (2) Anticoagulated on Coumadin (3) Factor 5 Leiden mutation, heterozygous Goals to Promote Your Health * To prevent worsening of your condition and complications * To maintain your health at the optimal level Directions to Meet Your Goals Take your medications as prescribed Follow your dietary instruction Follow activity as directed Keep your appointments as scheduled Take your immunizations and boosters as scheduled If your symptoms worsen call your PCP, if no PCP go to Urgent Care Center or Emergency Room Smoking is Dangerous to Your Health. Avoid second hand smoke Call the 24-hour hour crisis hotline for domestic abuse at Rayshawn Chaudhari DO May 31, 2017 11:40
--- NOTE | 2017-05-31 11:49 | HHI.PR ---
Subjective Remarks The patient was feeling well and wanted to go home. He said he believed IV fluids worked a lot. He says he tries to stay hydrated by drinking Gatorade. He says he has a follow-up appointment on the with his mumps developer. He had no acute complaints. Objective Vitals Vital Signs Date Time Temp Pulse Resp B/P Pulse Ox O2 Delivery O2 Flow Rate FiO2 05/31/17 10:08 97.5 67 16 134/93 98 05/31/17 08:59 97 21 05/31/17 04:00 96.4 58 18 130/82 97 05/31/17 00:00 95.6 55 18 128/88 96 05/30/17 21:15 98 21 05/30/17 20:00 65 05/30/17 20:00 97.6 69 18 136/77 90 05/30/17 16:00 96.9 56 18 128/84 98 149/99 144/98 05/30/17 15:00 98 21 05/30/17 12:40 58 18 110/81 98 05/30/17 12:00 97.1 63 18 125/78 97 I/O 05/30/17 05/30/17 05/30/17 05/31/17 05/31/17 05/31/17 07:00 15:00 23:00 07:00 15:00 23:00 Intake Total 1240 ml 680 ml 680 ml Output Total 550 ml 550 ml Balance 1240 ml 130 ml 130 ml Intake Oral 240 ml 680 ml 680 ml IV Total 1000 ml Output Urine Total 550 ml 550 ml # Bowel Movements 0 0 Result Diagram: 05/31/17 0520 05/31/17 0520 Imaging Last Impressions Carotid Artery Ultrasound 05/31/17 0000 Signed Impressions: Service Date/Time: May 08:03 - CONCLUSION: 1. Minimal calcified plaque in the right internal carotid artery with no significant stenosis. 2. Otherwise negative with no sonographic or Doppler findings of a hemodynamically significant stenosis. Antegrade flow in both vertebral arteries. Alvin Laura MD Head CT 05/30/17 0929 Signed Impressions: Service Date/Time: Tuesday, May 30, 2017 09:51 - CONCLUSION: 1. Stable region of encephalomalacia in the left posterior parietal high convexities consistent with old infarct. 2. Otherwise, no acute intracranial abnormality. Sd Hall MD Head Magnetic Resonance Angiography 05/30/17 0000 Signed Impressions: Service Date/Time: Tuesday, May 30, 2017 12:13 - CONCLUSION: 1. Patent bilateral posterior communicating arteries and anterior communicating artery. 2. Absent right A1 segment. 3. No significant stenosis, occlusion or aneurysm formation. Gregory Muhammad MD Brain MRI 05/30/17 0000 Signed Impressions: Service Date/Time: Tuesday, May 30, 2017 12:13 - CONCLUSION: 1. Encephalomalacia is noted within the left posterior parietal lobe and to a lesser extent right posterior parietal lobe consistent with old infarcts. 2. No acute infarct, acute hemorrhage, mass effect, or extra-axial fluid collections. Gregory Muhammad MD Objective Remarks GENERAL: Resting comfortably. SKIN: Focused skin assessment warm/dry. HEAD: Atraumatic. Normocephalic. EYES: Pupils equal and round. No scleral icterus. No injection or drainage. ENT: No nasal bleeding or discharge. Mucous membranes pink and moist. NECK: Trachea midline. No JVD. CARDIOVASCULAR: Regular rate and rhythm. No murmur appreciated. RESPIRATORY: No accessory muscle use. Clear to auscultation. Breath sounds equal bilaterally. GASTROINTESTINAL: Abdomen soft, mild tenderness in the lower quadrants, nondistended. Hepatic and splenic margins not palpable. MUSCULOSKELETAL: No obvious deformities. No clubbing. No cyanosis. No edema. Partial foot amputation on right. NEUROLOGICAL: Awake and alert. No obvious cranial nerve deficits. Motor grossly within normal limits. Normal speech. PSYCHIATRIC: Mood and affect appropriate. Medications and IVs Current Medications Medications (Trade) Dose Ordered Sig/Nereida Route Start Time Stop Time Status Last Admin (Theragran M Tab) 1 tab DAILY PO 05/31/17 09:00 05/31/17 08:28 Ferrous Sulfate 325 mg 325 mg DAILY PO 05/31/17 09:00 05/31/17 08:28 Pharmacy Profile Note 0 ml @ 0 mls/hr UNSCH OTHER 05/30/17 11:30 (NS 1000 ml Inj) 1,000 ml @ 75 mls/hr [id number] IV 05/30/17 11:22 05/31/17 14:01 05/30/17 21:16 (NS Flush) 2 ml UNSCH PRN IV FLUSH 05/30/17 11:30 (NS Flush) 2 ml BID IV FLUSH 05/30/17 21:00 05/31/17 08:28 (Tylenol) 650 mg Q4H PRN PO 05/30/17 11:30 (Tylenol) 650 mg Q6H PRN PO 05/30/17 11:30 (Narcan Inj) 0.4 mg UNSCH PRN IV 05/30/17 11:30 (Emilee-Colace) 1 tab BID PO 05/30/17 21:00 05/31/17 08:28 (Coumadin) 10 mg DAILY@16 PO 05/30/17 16:00 05/30/17 16:03 (Chloraseptic Jasiel) 1 lozenge UNSCH PRN BUCCAL 05/30/17 17:00 05/30/17 16:03 A/P Assessment and Plan Lightheadedness/ Dizziness/ Confusion/ Dehydration The pt has a history of CVA. INR was 1.[address], MRI/MRA without acute abnormality. Neurology consulted by the ED. Symptoms improved with IVFs. Likely s/t dehydration. Carotid US unremarkable. Echo with EF 50%. Not found to be orthostatic. - neuro checks. - smoking cessation instruction. - follow up with neurology. - telemetry. - continue Coumadin and follow INR. 2.2. D/c heparin gtt. Factor V Leiden The pt follows with Dr. Bradley. Hematology consult appreciated. - continue Coumadin, d/c heparin. - Coumadin 10 mg today, then back to 7.5 mg daily. - pt has INR check scheduled with Dr. Bradley on 06/04. PPx: Coumadin/ Heparin Discharge Planning D/c home today Rayshawn Chaudhari DO May 31, 2017 11:49
[2017-05-31 12:47] LABS: APTT (PATIENT) 57.3 SEC (24.3-30.1)
--- NOTE | 2017-05-31 12:54 | EKG ---
Date Performed: 05/30/2017 Time Performed: 17:05:17 PTAGE: 47 years EKG: SINUS BRADYCARDIA BORDERLINE ECG PREVIOUS TRACING : 05/30/2017 11.31 DOCTOR: Aguilar Campbell Interpretating Date/Time 05/31/2017 12:50:35
--- NOTE | 2017-05-31 13:03 | EKG ---
Date Performed: 05/30/2017 Time Performed: 11:31:58 PTAGE: 47 years EKG: SINUS BRADYCARDIA WITH FIRST DEGREE AV BLOCK ABNORMAL ECG PREVIOUS TRACING : 05/30/2017 09.25 DOCTOR: Aguilar Campbell Interpretating Date/Time 05/31/2017 12:56:41
--- NOTE | 2017-05-31 13:04 | EKG ---
Date Performed: 05/30/2017 Time Performed: 09:25:44 PTAGE: 47 years EKG: Sinus rhythm WITH FIRST DEGREE AV BLOCK ABNORMAL ECG PREVIOUS TRACING : 07/23/2013 15.06 DOCTOR: Aguilar Campbell Interpretating Date/Time 05/31/2017 12:56:54
== END 2017-05-31 14:02 | disposition home or self-care (01) ==
LOC: PHED 09:11 → PHEDA 10:40 → PH3A 13:08
PROVIDERS: ADMIT Hospitalist; ATTEND Hospitalist
DX: R42 Dizziness and giddiness (principal); R55 Syncope and collapse; R41.82 Altered mental status, unspecified; R45.86 Emotional lability; R00.1 Bradycardia, unspecified; R94.31 Abnormal electrocardiogram [ECG] [EKG]; I44.0 Atrioventricular block, first degree; E86.0 Dehydration; R51 Headache; D68.61 Antiphospholipid syndrome; G93.89 Other specified disorders of brain; I10 Essential (primary) hypertension; G47.30 Sleep apnea, unspecified; E21.3 Hyperparathyroidism, unspecified; F41.9 Anxiety disorder, unspecified; F10.10 Alcohol abuse, uncomplicated; F12.90 Cannabis use, unspecified, uncomplicated; F17.210 Nicotine dependence, cigarettes, uncomplicated; Z79.01 Long term (current) use of anticoagulants; Z86.73 Personal history of transient ischemic attack (TIA), and cerebral infarction without residual deficits; Z86.718 Personal history of other venous thrombosis and embolism; Z89.431 Acquired absence of right foot; Z91.19 Patient's noncompliance with other medical treatment and regimen
CPT/HCPCS: 70450; 70544; 70551; 80053; 80307; 81001; 82550; 84443; 84484; 85025; 85027; 85610; 85730; 93005; 93306; 93880; 96360; 99291; G0378; J1644; J7030

== ENCOUNTER 2018-07-25 08:09 | Observation (INO) ==
[2018-07-25] MEDS ORDERED: MethylPREDNISolone Sod Succinate Inj 125 MG/2 ML Vial IV.PUSH ONE (08:45)
[2018-07-25] MEDS ORDERED: Ketorolac Inj 30 MG/ML (IVP) Vial IV.PUSH ONE (08:45)
--- NOTE | 2018-07-25 08:53 | ED ---
HPI General Chief complaint: Extremity Problem,Nontraumatic Stated complaint: Rt hand pain/swelling x 2 days Time Seen by Provider: 07/25/18 08:25 History of Present Illness HPI Narrative: This patient woke up yesterday morning with pain and swelling in his right hand. There is been no injury. No fever. He did not do anything to it that he is aware of. He has significant swelling. Pain is worse with movement or touching it. He denies history of inflammatory arthritis. Symptoms are severe. No alleviating factors. Worse with movement. Duration is 24 hours. When he went to bed his hand was fine and he woke up that way. Related Data Home Medications Medication Instructions Recorded Confirmed ivcoxsjd-ofp-WP-lycopen-lutein 1 tab PO DAILY 07/25/18 07/25/18 [Centrum Silver Men] warfarin [Coumadin] 10 mg PO DAILY 07/25/18 07/25/18 Allergies Allergy/AdvReac Type Severity Reaction Status Date / Time penicillin G Allergy Mild RASH Verified 07/25/18 08:14 Review of Systems ROS: all other systems reviewed are negative [facility] Medical History Medical History Hx of blood clots (Acute) Surgical History Surgical History Hx of inguinal hernia repair (Acute) Hx of appendectomy (Acute) Social History Social History Substance History: No History of Abuse Second Hand Smoke Exposure: No Smoking Status: Current some day smoker Tobacco Type: Cigarettes How Often Do You Have a Drink Containing Alcohol: Monthly or less Immunization History Tetanus Immunization: <5 Years Hx Influenza Vaccine This Season: No Exam Narrative Exam Narrative: GENERAL: Well-nourished, well-developed patient in no apparent distress. SKIN: Focused skin assessment reveals no rash and nodules. Skin is Warm and dry. HEAD: Atraumatic. Normocephalic. EYES: Pupils equal and round. No scleral icterus. No injection or drainage. ENT: No nasal bleeding or discharge. Mucous membranes pink and moist. NECK: Trachea midline. No JVD. CARDIOVASCULAR: Regular rate and rhythm. No murmur appreciated. RESPIRATORY: No accessory muscle use. Clear to auscultation. Breath sounds equal bilaterally. GASTROINTESTINAL: Abdomen soft, non-tender, nondistended. Hepatic and splenic margins not palpable. MUSCULOSKELETAL: Patient has chronic deformity at the right fourth metacarpal joint. He injured his hand many many years ago and that deformity is chronic. He has significant swelling and tenderness of the medial half of the right hand. There is inflammation and tenderness at the first and second MCP joints. There is no fluctuance or drainage or ecchymosis. Swelling is significant and flexion or extension of the first and second digit produces pain. . No clubbing. No cyanosis. No edema. NEUROLOGICAL: Awake and alert. No obvious cranial nerve deficits. Motor grossly within normal limits. Normal speech. PSYCHIATRIC: Appropriate mood and affect; insight and judgment normal. Course Initial Documented Vital Signs Temperature 97.9 F 07/25/18 08:10 Pulse Rate 67 07/25/18 08:10 Respiratory Rate 17 07/25/18 08:10 Blood Pressure 135/75 07/25/18 08:10 Pulse Oximetry 98 07/25/18 08:10 Last Documented Vital Signs Temperature 97.9 F 07/25/18 08:10 Pulse Rate 77 07/25/18 09:23 Respiratory Rate 18 07/25/18 09:23 Blood Pressure 131/89 07/25/18 09:23 Pulse Oximetry 97 07/25/18 09:23 Critical Care Time Critical Care Time: Yes Total Critical Care Time: 78 Attestation: Aggregate critical care time was 78 minutes. Time to perform other separately billable procedures was not included in the critical care time. My time did not include minutes spent treating any other patients simultaneously or on activities that did not directly contribute to the patient's treatment. The services I provided to this patient were to treat and/or prevent clinically significant deterioration that could result in: Muscle atrophy, permanent neurologic deficit, vascular injury I provided critical care services requiring my management, as noted below: Chart data review, documentation time, medication orders and management, vital sign assessments/reviewing monitor data, ordering and reviewing lab tests, ordering and interpreting/reviewing x-rays and diagnostic studies, care of the patient and discussion of the patient with the admitting physicians. Medical Decision Making MDM Narrative Medical decision making narrative: Patient 24 hours of prominent pain and swelling in the right hand. From examination it seems more inflammatory but it is quite prominent. He is afebrile. Into place IV and run some lab studies. I gave him IV Toradol and IV Solu-Medrol. Will review some x-rays. X-rays negative. Labs are reviewed. He has no leukocytosis or fever. Sed rate is 1. I do not think this is infectious or inflammatory at this point. I am most concerned about a spontaneous hematoma given his INR of 8.8 on Coumadin. He does have history of factor V Leiden mutation and is on Coumadin for life. I think it important to reverse this given that I think he has spontaneous hematoma and I do not want this develop into compartment syndrome. At this point he is neurovascularly intact. He has capillary refill and sensation and pulse. He is having a lot of pain however. I have given him a morphine and Zofran dose. 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 Bradley who says that it is quite reasonable and sounds like the appropriate idea to immediately reverse his Coumadin given the presentation and concerns. I spoke with hand surgeon Dr. Carmona. She will be a analytical consultant on this case and will see the patient. I have paged the hospitalist for admission. I have ordered K [facility]ra to reverse the Coumadin. I spoke with radiologist Dr. Fady Boyer about the best type of imaging to confirm hematoma and he recommends ultrasound. I am ordering that. Will elevate and compress right hand. Medical Screen Exam Complete: Yes Emergency Medical Condition: Yes Differential Diagnosis Differential Diagnosis: Gout, lupus, hand infection Medical Records Medical records reviewed: Yes I reviewed the patient's medical records. Reviewed March 2018 plant controller office visit Lab Data Lab results reviewed: Yes I reviewed the patient's lab results. Lab results narrative: CBC and metabolic studies are normal. INR is 8.8. Sed rate is 1 Result diagrams: 07/25/18 09:00 07/25/18 09:00 Lab Results 07/25/18 07/25/18 07/25/18 Range/Units 09:00 09:00 09:00 CBC w Diff Auto diff final WBC 7.8 (4.0-11.0) th/mm3 RBC 4.73 (4.50-5.90) mil/mm3 Hgb 13.9 (13.0-17.0) gm/dL Hct 41.3 (39.0-51.0) % MCV 87.5 (80.0-100.0) fL MCH 29.4 (27.0-34.0) pg MCHC 33.5 (32.0-36.0) % RDW 13.9 (11.6-17.2) % Plt Count 251 (150-450) th/mm3 MPV 8.9 (7.0-11.0) fL Neut % (Auto) 60.8 (16.0-70.0) % Lymph % (Auto) 22.4 (9.0-44.0) % [place] % (Auto) 10.1 H (0.0-8.0) % Eos % (Auto) 5.7 H (0.0-4.0) % Baso % (Auto) 1.0 (0.0-2.0) % Neut # (Auto) 4.7 (1.8-7.7) th/mm3 Lymph # (Auto) 1.8 (1.0-4.8) th/mm3 [place] # (Auto) 0.8 (0.0-0.9) th/mm3 Eos # (Auto) 0.4 (0.0-0.4) th/mm3 Baso # (Auto) 0.1 (0.0-0.2) th/mm3 WBC Differential . Differential Comment . ESR (0-15) mm/hr PT 87.6 H (9.8-11.6) sec INR 8.8 H* Ratio Sodium 140 (136-145) meq/L Potassium 3.8 (3.5-5.1) meq/L Chloride 109 H (98-107) meq/L Carbon Dioxide 23.2 (21.0-32.0) meq/L Anion Gap 8 (5-15) meq/L BUN 19 H (7-18) mg/dL Creatinine 1.00 (0.60-1.30) mg/dL Estimated GFR 79 L (>89) mL/min Random Glucose 85 (74-106) mg/dL Calcium 8.1 L (8.5-10.1) mg/dL 07/25/18 Range/Units 09:00 CBC w Diff WBC (4.0-11.0) th/mm3 RBC (4.50-5.90) mil/mm3 Hgb (13.0-17.0) gm/dL Hct (39.0-51.0) % MCV (80.0-100.0) fL MCH (27.0-34.0) pg MCHC (32.0-36.0) % RDW (11.6-17.2) % Plt Count (150-450) th/mm3 MPV (7.0-11.0) fL Neut % (Auto) (16.0-70.0) % Lymph % (Auto) (9.0-44.0) % [place] % (Auto) (0.0-8.0) % Eos % (Auto) (0.0-4.0) % Baso % (Auto) (0.0-2.0) % Neut # (Auto) (1.8-7.7) th/mm3 Lymph # (Auto) (1.0-4.8) th/mm3 [place] # (Auto) (0.0-0.9) th/mm3 Eos # (Auto) (0.0-0.4) th/mm3 Baso # (Auto) (0.0-0.2) th/mm3 WBC Differential Differential Comment ESR 1 (0-15) mm/hr PT (9.8-11.6) sec INR Ratio Sodium (136-145) meq/L Potassium (3.5-5.1) meq/L Chloride (98-107) meq/L Carbon Dioxide (21.0-32.0) meq/L Anion Gap (5-15) meq/L BUN (7-18) mg/dL Creatinine (0.60-1.30) mg/dL Estimated GFR (>89) mL/min Random Glucose (74-106) mg/dL Calcium (8.5-10.1) mg/dL Imaging Data Attestation: I personally reviewed and interpreted this imaging study as follows : My impression: Hand x-ray shows no fracture but there is soft tissue swelling Radiologist's impression: Hand X-Ray 07/25/18 08:45 CONCLUSION: 1. No acute fracture or dislocation. 2. Soft tissue swelling in the region of the first and second metacarpals. Discharge Plan Discharge Disposition Patient Disposition: 30 Still Patient Discharge Details Diagnosis: Spontaneous hematoma of hand, Supratherapeutic INR Physicians Team ED Provider: Aleksander Estrada Primary Care Provider: Primary Care Genie Chi Rxs /Orders / Referrals /Forms Prescriptions: No Action warfarin [Coumadin] 10 mg Tablet 10 mg PO DAILY RF: 0 yrekzheb-osa-SF-lycopen-lutein [Centrum Silver Men] 300-600-300 mcg Tablet 1 tab PO DAILY RF: 0 Discharge Interventions Interventions: Vital Signs Last Done: 07/25/18 09:23 Status ED Status: With Doctor
[2018-07-25 09:08] LABS: Baso # (Auto) 0.1 th/mm3 (0.0-0.2); Eos # (Auto) 0.4 th/mm3 (0.0-0.4); Eos % (Auto) 5.7 % (0.0-4.0); Hematocrit 41.3 % (39.0-51.0); Hemoglobin 13.9 gm/dL (13.0-17.0); Lymph # (Auto) 1.8 th/mm3 (1.0-4.8); Lymph % (Auto) 22.4 % (9.0-44.0); Mean Corpuscular HGB Conc 33.5 % (32.0-36.0); Mean Corpuscular Hemoglobin 29.4 pg (27.0-34.0); Mean Corpuscular Volume 87.5 fL (80.0-100.0); Mean Platelet Volume 8.9 fL (7.0-11.0); Mono # (Auto) 0.8 th/mm3 (0.0-0.9); Mono % (Auto) 10.1 % (0.0-8.0); Neut # (Auto) 4.7 th/mm3 (1.8-7.7); Neut % (Auto) 60.8 % (16.0-70.0); Platelet Count 251 th/mm3 (150-450); Red Blood Count 4.73 mil/mm3 (4.50-5.90); Red Cell Distribution Width 13.9 % (11.6-17.2); White Blood Count 7.8 th/mm3 (4.0-11.0)
[2018-07-25 09:14] LABS: Potassium 3.8 meq/L (3.5-5.1)
[2018-07-25 09:16] LABS: Calcium 8.1 mg/dL (8.5-10.1)
[2018-07-25 09:17] LABS: Carbon Dioxide 23.2 meq/L (21.0-32.0)
[2018-07-25 09:19] LABS: Prothrombin Time 87.6 sec (9.8-11.6)
--- NOTE | 2018-07-25 09:23 | XR ---
EXAM DATE: 07/25/2018 9:17 AM EDT AGE/SEX: 48 years / Male INDICATIONS: Right hand pain and swelling metacarpals between 1st and 2nd digit, after working in [employer] yesterday, no known injury. CLINICAL DATA: This is the patient's initial encounter. Patient reports that signs and symptoms have been present for 2 days and indicates a pain score of 9/10. MEDICAL/SURGICAL HISTORY: None. None. COMPARISON: [facility], HAND RIGHT COMPLETE ([id number]), 03/24/2015. . FINDINGS: Bony structures are intact and in normal alignment. Osseous density is normal. Soft tissue swelling i s noted in the region of the first and second metacarpals. No radiopaque foreign bodies seen. CONCLUSION: 1. No acute fracture or dislocation. 2. Soft tissue swelling in the region of the first and second metacarpals. Electronically signed by: Gregory Muhammad MD 07/25/2018 9:22 AM EDT
[2018-07-25 09:31] LABS: INR 8.8 Ratio
[2018-07-25] MEDS ORDERED: Morphine Inj 4 MG/ML Vial IV.PUSH ONE (10:16)
[2018-07-25] MEDS ORDERED: PROTHROMBIN COMPLEX IV.SIG ONE (10:31)
[2018-07-25] MEDS ORDERED: Dextrose 50% in Water 50 ML Vial IV.PUSH PRN (11:07)
[2018-07-25] MEDS ORDERED: Bisacodyl 10 MG Supp RECTAL PRN (11:08)
[2018-07-25] MEDS ORDERED: Acetaminophen 325 MG Tablet PO PRN ×2 (11:08→11:12)
[2018-07-25] MEDS ORDERED: Morphine Sulfate Inj 2 MG/ML Vial IV.PUSH PRN (11:12)
[2018-07-25] MEDS ORDERED: Morphine Inj 4 MG/ML Vial IV.PUSH PRN ×2 (11:12)
[2018-07-25] MEDS ORDERED: Naloxone Inj 0.4 MG/ML Vial IV.PUSH PRN (11:12)
--- NOTE | 2018-07-25 11:55 | US ---
EXAM DATE: 07/25/2018 11:50 AM EDT AGE/SEX: 48 years / Male INDICATIONS: Fluid collection/hematoma. Right hand swelling. CLINICAL DATA: This is the patient's initial encounter. Patient reports that signs and symptoms have been present for 1 day and indicates a pain score of 3/10. MEDICAL/SURGICAL HISTORY: . Chronic deformity at the right fourth metacarpal joint. History of blood clots. Appendectomy. Inguinal hernia repair. Partial amputation of foot. COMPARISON: No prior exams available for comparison. FINDINGS: Possible sonographic images of the focal area soft tissue swelling along the dorsum of the right hand between the first and second metacarpals demonstrates a lobulated complex hypoechoic collection/mass and 2.4 x 1.2 x 1.8 cm. This could represent a focal hematoma. Mass would be less likely in this loc ation. CONCLUSION: 1. 2.4 x 1.2 x 1.8 cm lobulated complex hypoechoic collection/mass between the right first and secon d metacarpals dorsally consistent with probable focal hematoma. Mass would be less likely in this loc ation. Electronically signed by: Gregory Muhammad MD 07/25/2018 11:53 AM EDT
--- NOTE | 2018-07-25 13:00 | P.HP ---
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 Denies trauma. This morning pain was worse with increased swelling. In the ED ultrasound shows hematoma and patient received [facility] INR of 8.8 patient on Coumadin 10 mg daily last checked 2 weeks ago.. Hand surgery was consulted to evaluate for compartment syndrome. Patient remains n.p.o. At this time he feels pain and swelling slightly better than when he came in. All other systems reviewed negative Inpatient Certification: I certify that the inpatient services were ordered in accordance with Medicare regulations governing the order. This includes certification that hospital inpatient services are reasonable and necessary and in the case of services not specified as inpatient-only under 42 CFR 419.22(n), that they are appropriately provided as inpatient services in accordance to with the 2-midnight benchmark under 43 CFR 412.3(e) Review of Systems All other systems reviewed negative except as stated in HPI PMFSH - History History Provided By: Patient - Medical History Medical History: Medical History (Last Reviewed 07/25/18 @ 12:55 by Claudio Burr MD) Hx of blood clots (Acute) - Surgical History Surgical History: Surgical History (Last Reviewed 07/25/18 @ 12:55 by Claudio Burr MD) Hx of inguinal hernia repair (Acute) Hx of appendectomy (Acute) - Family History Family History: Family History (Last Updated 07/25/18 @ 12:56 by Claudio Burr MD) Other No pertinent family history - Tobacco History Second Hand Smoke Exposure: No Tobacco Use In Past 30 Days: Yes Smoking Status: Current some day smoker Tobacco Type: Cigarettes - Alcohol History How Often Do You Have a Drink Containing Alcohol: Monthly or less - Substance Use History Substance History: No History of Abuse - Immunization History Tetanus Immunization: <5 Years Hx Influenza Vaccine This Season: No Medications and Allergies Active Medications: Active Medications Acetaminophen (Tylenol) 650 mg PO Q4H PRN PRN Reason: Temp > 100.4 Acetaminophen (Tylenol) 650 mg PO Q6HR PRN PRN Reason: PAIN SCALE 1 TO 2 Hydrocodone Bitart/Acetaminophen (Ideal 5/325) 1 tab PO Q4H PRN PRN Reason: PAIN SCALE 3 TO 5 Hydrocodone Bitart/Acetaminophen (Ideal 7.5/325) 1 tab PO Q4H PRN PRN Reason: PAIN SCALE 6 TO 10 Al Hydroxide/Mg Hydroxide (Milk Of Magnesia Liq) 30 ml PO Q12H PRN PRN Reason: Mild Constipation Bisacodyl (Dulcolax Supp) 10 mg RECTAL DAILY PRN PRN Reason: SEVERE CONSITIPATION Dextrose (D50w Vial) 50 ml IV.PUSH UNSCH PRN PRN Reason: PER HYPOGLYCEMIA PROTOCOL Glucagon (Glucagon Inj) 1 mg OTHER PRN PRN PRN Reason: for Hypoglycemia Protocol Sodium Chloride (Ns Inj) 1,000 mls @ 100 mls/hr IV.CONT .Q10H FRANCES Lactulose (Lactulose Liq) 30 ml PO DAILY PRN PRN Reason: SEVERE CONSITIPATION Morphine Sulfate (Morphine Inj) 2 mg IV.PUSH Q3H PRN PRN Reason: PAIN 3-5; IF UABLE TO TAKE PO Morphine Sulfate (Morphine Inj) 4 mg IV.PUSH Q3H PRN PRN Reason: PAIN 6-10;IF UNABLE TO TAKE PO Morphine Sulfate (Morphine Inj) 4 mg IV.PUSH Q3H PRN PRN Reason: BREAKTHROUGH PAIN Naloxone HCl (Narcan Inj) 0.4 mg IV.PUSH UNSCH PRN PRN Reason: SEE LABEL COMMENTS Ondansetron HCl (Zofran Inj) 4 mg IV.PUSH Q6H PRN PRN Reason: NAUSEA OR VOMITING Senna/Docusate Sodium (Emilee-Colace) 1 tab PO BID FRANCES Sennosides (Senokot) 17.2 mg PO Q12H PRN PRN Reason: Moderate Constipation Allergies Allergy/AdvReac Type Severity Reaction Status Date / Time penicillin G Allergy Mild RASH Verified 07/25/18 08:14 Home Medications Medication Instructions Recorded Confirmed Type jjjvywia-xlr-IK-lycopen-lutein 1 tab PO DAILY 07/25/18 07/25/18 History [Centrum Silver Men] warfarin [Coumadin] 10 mg PO DAILY 07/25/18 07/25/18 History Exam Vital signs: Vital Signs 07/25/18 08:10 07/25/18 09:23 07/25/18 11:22 Temperature 97.9 F Pulse Rate 67 77 64 Respiratory Rate 17 18 16 Blood Pressure 135/75 131/89 132/74 Pulse Oximetry 98 97 98 07/25/18 12:00 Temperature 96.5 F L Pulse Rate 52 L Respiratory Rate 20 Blood Pressure 135/91 H Pulse Oximetry 97 Intake & Output 07/24/18 07/25/18 07/25/18 18:59 06:59 18:59 Intake Total 150 / 150 Balance 150 / 150 Weight 83 kg Intake: IV 150 / 150 K[facility]ra Inj 4,000 UNIT In Bag/ 150 / 150 Syringe 1 EACH @ 500 mls/hr IV. SIG ONCE ONE Rx#:[id number] Narrative: GENERAL: Well-developed and well-nourished in no distress SKIN: Warm and dry. HEAD: Atraumatic. Normocephalic. EYES: Pupils equal and round. No scleral icterus. No injection or drainage. ENT: No nasal bleeding or discharge. Mucous membranes pink and moist. NECK: Trachea midline. No JVD. CARDIOVASCULAR: Regular rate and rhythm. RESPIRATORY: No accessory muscle use. Clear to auscultation. Breath sounds equal bilaterally. GASTROINTESTINAL: Abdomen soft, non-tender, nondistended. MUSCULOSKELETAL: Extremities without clubbing, cyanosis, or edema. No obvious deformities. There is swelling and tenderness over the dorsum of right hand with slight redness over first MCP joint, according to patient this is improved since admission. No warmth NEUROLOGICAL: Awake and alert. No obvious cranial nerve deficits. Motor grossly within normal limits. Five out of 5 muscle strength in the arms and legs. Normal speech. PSYCHIATRIC: Appropriate mood and affect; insight and judgment normal. Results - Labs CBC & Chem 7: 07/25/18 09:00 07/25/18 09:00 Labs: Laboratory Results - last 24 hr 07/25/18 07/25/18 07/25/18 09:00 09:00 09:00 CBC w Diff Auto diff final WBC 7.8 RBC 4.73 Hgb 13.9 Hct 41.3 MCV 87.5 MCH 29.4 MCHC 33.5 RDW 13.9 Plt Count 251 MPV 8.9 Neut % (Auto) 60.8 Lymph % (Auto) 22.4 [place] % (Auto) 10.1 H Eos % (Auto) 5.7 H Baso % (Auto) 1.0 Neut # (Auto) 4.7 Lymph # (Auto) 1.8 [place] # (Auto) 0.8 Eos # (Auto) 0.4 Baso # (Auto) 0.1 WBC Differential . Differential Comment . ESR PT 87.6 H INR 8.8 H* Sodium 140 Potassium 3.8 Chloride 109 H Carbon Dioxide 23.2 Anion Gap 8 BUN 19 H Creatinine 1.00 Estimated GFR 79 L Random Glucose 85 Calcium 8.1 L 07/25/18 09:00 CBC w Diff WBC RBC Hgb Hct MCV MCH MCHC RDW Plt Count MPV Neut % (Auto) Lymph % (Auto) [place] % (Auto) Eos % (Auto) Baso % (Auto) Neut # (Auto) Lymph # (Auto) [place] # (Auto) Eos # (Auto) Baso # (Auto) WBC Differential Differential Comment ESR 1 PT INR Sodium Potassium Chloride Carbon Dioxide Anion Gap BUN Creatinine Estimated GFR Random Glucose Calcium - Imaging Impressions Hand X-Ray 07/25/18 08:45 CONCLUSION: 1. No acute fracture or dislocation. 2. Soft tissue swelling in the region of the first and second metacarpals. Soft Tissue Ultrasound 07/25/18 11:16 CONCLUSION: 1. 2.4 x 1.2 x 1.8 cm lobulated complex hypoechoic collection/mass between the right first and second metacarpals dorsally consistent with probable focal hematoma. Mass would be less likely in this location. Caprini VTE Risk Assessment Caprini VTE Risk Assessment: Moderate/High Risk (score >= 2) Caprini Risk Assessment Model: Point Value = 1 Point Value = 2 Point Value = 3 Point Value = 5 Age 41-60 Minor surgery BMI > 25 kg/m2 Swollen legs Varicose veins or History of unexplained or recurrent spontaneous Oral contraceptives or hormone replacement Sepsis (< 1 month) Serious lung disease, including pneumonia (< 1 month) Abnormal pulmonary function Acute myocardial infarction Congestive heart failure (< 1 month) History of inflammatory bowel disease Medical patient at bed rest Age 61-74 Arthroscopic surgery Major open surgery (> 45 min) Laparoscopic surgery (> 45 min) Malignancy Confined to bed (> 72 hours) Immobilizing plaster cast Central venous access Age >= 75 History of VTE Family history of VTE Factor V Leiden Prothrombin [id number] Lupus anticoagulant Anticardiolipin antibodies Elevated serum homocysteine Heparin-induced thrombocytopenia Other congenital or acquired thrombophilia Stroke (< 1 month) Elective arthroplasty Hip, pelvis, or leg fracture Acute spinal cord injury (< 1 month) Prophylaxis Regimen: Total Risk Factor Score Risk Level Prophylaxis Regimen 0-1 Low Early ambulation 2 Moderate Order ONE of the following: *Sequential Compression Device (SCD) *Heparin 5000 units SQ BID 3-4 Higher Order ONE of the following medications: *Heparin 5000 units SQ TID *Enoxaparin/Lovenox 40 mg SQ daily (WT < 150 kg, CrCl > 30 mL/min) *Enoxaparin/Lovenox 30 mg SQ daily (WT < 150 kg, CrCl > 10-29 mL/min) *Enoxaparin/Lovenox 30 mg SQ BID (WT < 150 kg, CrCl > 30 mL/min) AND/OR *Sequential Compression Device (SCD) 5 or more Highest Order ONE of the following medications: *Heparin 5000 units SQ TID (Preferred with Epidurals) *Enoxaparin/Lovenox 40 mg SQ daily (WT < 150 kg, CrCl > 30 mL/min) *Enoxaparin/Lovenox 30 mg SQ daily (WT < 150 kg, CrCl > 10-29 mL/min) *Enoxaparin/Lovenox 30 mg SQ BID (WT < 150 kg, CrCl > 30 mL/min) AND *Sequential Compression Device (SCD) Assessment and Plan - Plan This is a 48-year-old male with a history of 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 Denies trauma. Ultrasound shows hematoma and patient received [facility] INR of 8.8 Spontaneous hematoma right hand in a patient with hypercoagulable state on Coumadin. Keep patient n.p.o. monitor for compartment syndrome. Patient feels pain and swelling improved from admission. Keep right hand elevated, continue pain management with Lortab and IV morphine. Hand surgery has been consulted. Hematology also has been consulted. Coagulopathy on Coumadin initial INR of 8.8. Coumadin on hold. Patient received [facility]. Repeat INR Discharge Planning: pt
[2018-07-25] MEDS: Sod Chloride 0.9% Inj 1,000 ML IV.CONT SCH ×2 (14:41→21:57)
[2018-07-25 17:30] LABS: INR 1.5 Ratio; Prothrombin Time 15.1 sec (9.8-11.6)
--- NOTE | 2018-07-25 19:56 | MB ---
cc: Leona Dominguez MD DATE: 07/25/2018 CHIEF COMPLAINT: 1. History of factor V Leiden mutation. 2. Positive antiphospholipid antibodies. 3. History of recurrent arterial thrombosis. 4. Right hand hematoma and possible compartment syndrome. HISTORY OF PRESENT ILLNESS: The patient is a 48-year-old gentleman with a history of acute arterial thrombosis involving his lower extremity on the right side, which resulted in partial amputation of his right foot in early 2012. He also has a history of ischemic strokes. He has been on anticoagulation since this initial diagnosis of the arterial thrombosis in early 2012 and he was not adherent to therapy or medical followup initially. He follows in clinic with my colleague, Dr. Bradley. For factor V Leiden mutation he is a heterozygous carrier of the [id number] mutation. Multiple ischemic strokes with MRIs of the brain in 03/2013 and 07/2013 corroborating this. His arterial occlusion was a right anterior and posterior tibial artery occlusion, right lower extremity ischemia necessitating partial amputation of the right foot. He presented to the emergency room today with approximately a 24-hour history of right hand pain and swelling. This began on 07/24/2018 while he was at work. This morning, he had severe pain, severe swelling. On presentation to the emergency department, he underwent a soft tissue ultrasound which showed evidence of a 2.4 x 1.2 x 1.8 cm lobulated complex hypoechoic collection mass between the right first and second metacarpals dorsally consistent with focal hematoma, mass would be less likely in this location. He subsequently received Kcentra as his INR was found to be supratherapeutic with a value of 8.8. Most recent INR is 1.5. Chemistry studies with a creatinine of 1 and estimated GFR of 79. Liver function test within normal limits. Blood counts with white blood cell count 7.8, hemoglobin 13.9, platelet count of 251,000. Consultation with hand surgery is pending. PAST MEDICAL HISTORY: 1. Arterial occlusion. 2. Cerebrovascular disease. 3. Factor V Leiden mutation. 4. History of lupus anticoagulant, antiphospholipid antibody syndrome. PAST SURGICAL HISTORY: 1. Appendectomy. 2. EGD and colonoscopy. 3. Hernia repair surgery. 4. Right foot partial amputation. ALLERGIES: PENICILLIN. HOME MEDICATIONS: Include: 1. Warfarin. 2. Iron. FAMILY HISTORY: No known family history of blood clot. SOCIAL HISTORY: The patient reports intermittent tobacco use and alcohol use. 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 He has a 6-year-old daughter. REVIEW OF SYSTEMS: As above in the HPI. All others negative. PHYSICAL EXAMINATION: VITAL SIGNS: Temperature of 98, pulse of 68, respiratory rate of 18, blood pressure of 120/80. Oxygen saturation is 97% on room air. GENERAL: Well-developed, well-nourished man in no distress, not overweight. HEENT: Head is normocephalic, atraumatic. Eyes: PERRLA, EOMI. No scleral icterus. No conjunctival pallor. NECK: Supple without masses. RESPIRATORY: Clear to auscultation bilaterally. CARDIOVASCULAR: Regular rate and rhythm. No murmurs. ABDOMEN: Soft, nontender, nondistended. EXTREMITIES: Partial amputation of the right foot. MUSCULOSKELETAL: Right hand with swelling and discoloration compared to the left hand, a line is drawn around hand from this morning to where the swelling extended to and this has decreased. The patient reports improvement in his pain. NEUROLOGIC: Grossly nonfocal. PSYCHIATRIC: Appropriate mood and affect. ASSESSMENT AND PLAN: 1. Acute soft tissue hematoma of the right hand. Surgical evaluation is pending. Concern for compartment syndrome on presentation to the emergency room, given extreme discoloration of hand and severe pain. He is status post reversal of INR. Hematoma, likely occurred secondary to traumatic episode in the setting of supratherapeutic INR. 2. History of arterial thrombosis, history of ischemic vascular disease and history of long-term anticoagulation with warfarin. INRs in the past have been somewhat variable with maximum INR recently approximately 3 and minimum INR in the upper 1's. Per Dr. Bradley's note, he has somewhat erratic PT and INR checks and he was counseled to have these done regularly. Once cleared by the surgical service, the patient would absolutely need to resume anticoagulation. He is at high risk to get another clot, especially in light of past arterial and recurrent thrombosis. Risk versus benefits of anticoagulation versus none discussed with the patient. He will be seen by his primary primer inspector, Dr. Bradley tomorrow. Leona Dominguez MD MINOR/ct , 06:36 PM , 06:46 PM
[2018-07-25] MEDS: Senna/Docusate Sodium 8.6/50 MG Tablet PO SCH (22:00)
[2018-07-26 06:19] LABS: Potassium 4.3 meq/L (3.5-5.1)
[2018-07-26 06:23] LABS: INR 2.1 Ratio; Prothrombin Time 21.3 sec (9.8-11.6)
[2018-07-26 06:25] LABS: Calcium 7.3 mg/dL (8.5-10.1)
[2018-07-26 06:27] LABS: Baso # (Auto) 0.1 th/mm3 (0.0-0.2); Eos # (Auto) 0.4 th/mm3 (0.0-0.4); Eos % (Auto) 5.1 % (0.0-4.0); Hematocrit 40.2 % (39.0-51.0); Hemoglobin 13.5 gm/dL (13.0-17.0); Lymph % (Auto) 25.7 % (9.0-44.0); Mean Corpuscular HGB Conc 33.5 % (32.0-36.0); Mean Corpuscular Volume 86.7 fL (80.0-100.0); Mean Platelet Volume 9.7 fL (7.0-11.0); Mono # (Auto) 0.8 th/mm3 (0.0-0.9); Mono % (Auto) 10.5 % (0.0-8.0); Neut # (Auto) 4.5 th/mm3 (1.8-7.7); Neut % (Auto) 57.7 % (16.0-70.0); Platelet Count 257 th/mm3 (150-450); Red Blood Count 4.64 mil/mm3 (4.50-5.90); Red Cell Distribution Width 14.4 % (11.6-17.2); White Blood Count 7.8 th/mm3 (4.0-11.0)
--- NOTE | 2018-07-26 07:46 | P.HPOP ---
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 Denies trauma. This morning pain was worse with increased swelling. In the ED ultrasound shows hematoma and patient received K Centra INR of 8.8 patient on Coumadin 10 mg daily last checked 2 weeks ago.. Hand surgery was consulted to evaluate for compartment syndrome. Patient remains n.p.o. At this time he feels pain and swelling slightly better than when he came in. All other systems reviewed negative Inpatient Certification: I certify that the inpatient services were ordered in accordance with Medicare regulations governing the order. This includes certification that hospital inpatient services are reasonable and necessary and in the case of services not specified as inpatient-only under 42 CFR 419.22(n), that they are appropriately provided as inpatient services in accordance to with the 2-midnight benchmark under 43 CFR 412.3(e) [facility] - History History Provided By: Patient - Medical History Medical History: Medical History (Last Reviewed 07/25/18 @ 12:55 by Claudio Burr MD) Hx of blood clots (Acute) - Surgical History Surgical History: Surgical History (Last Reviewed 07/25/18 @ 12:55 by Claudio Burr MD) Hx of inguinal hernia repair (Acute) Hx of appendectomy (Acute) - Family History Family History: Family History (Last Updated 07/25/18 @ 12:56 by Claudio Burr MD) Other No pertinent family history - Tobacco History Second Hand Smoke Exposure: No Tobacco Use In Past 30 Days: Yes Smoking Status: Current some day smoker Tobacco Type: Cigarettes - Alcohol History How Often Do You Have a Drink Containing Alcohol: Monthly or less - Substance Use History Substance History: No History of Abuse - Immunization History Tetanus Immunization: <5 Years Hx Influenza Vaccine This Season: No Medications and Allergies Active Medications: Active Medications Acetaminophen (Tylenol) 650 mg PO Q4H PRN PRN Reason: Temp > 100.4 Acetaminophen (Tylenol) 650 mg PO Q6HR PRN PRN Reason: PAIN SCALE 1 TO 2 Hydrocodone Bitart/Acetaminophen ([place] 5/325) 1 tab PO Q4H PRN PRN Reason: PAIN SCALE 3 TO 5 Hydrocodone Bitart/Acetaminophen ([place] 7.5/325) 1 tab PO Q4H PRN PRN Reason: PAIN SCALE 6 TO 10 Last Admin: 07/25/18 21:56 Dose: 1 tab Al Hydroxide/Mg Hydroxide (Milk Of Magnesia Liq) 30 ml PO Q12H PRN PRN Reason: Mild Constipation Bisacodyl (Dulcolax Supp) 10 mg RECTAL DAILY PRN PRN Reason: SEVERE CONSITIPATION Dextrose (D50w Vial) 50 ml IV.PUSH UNSCH PRN PRN Reason: PER HYPOGLYCEMIA PROTOCOL Glucagon (Glucagon Inj) 1 mg OTHER PRN PRN PRN Reason: for Hypoglycemia Protocol Sodium Chloride (Ns Inj) 1,000 mls @ 100 mls/hr IV.CONT .Q10H [facility] Last Admin: 07/25/18 21:57 Dose: 100 mls/hr Lactulose (Lactulose Liq) 30 ml PO DAILY PRN PRN Reason: SEVERE CONSITIPATION Morphine Sulfate (Morphine Inj) 2 mg IV.PUSH Q3H PRN PRN Reason: PAIN 3-5; IF UABLE TO TAKE PO Morphine Sulfate (Morphine Inj) 4 mg IV.PUSH Q3H PRN PRN Reason: PAIN 6-10;IF UNABLE TO TAKE PO Morphine Sulfate (Morphine Inj) 4 mg IV.PUSH Q3H PRN PRN Reason: BREAKTHROUGH PAIN Naloxone HCl (Narcan Inj) 0.4 mg IV.PUSH UNSCH PRN PRN Reason: SEE LABEL COMMENTS Ondansetron HCl (Zofran Inj) 4 mg IV.PUSH Q6H PRN PRN Reason: NAUSEA OR VOMITING Senna/Docusate Sodium (Emilee-Colace) 1 tab PO BID [facility] Last Admin: 07/25/18 22:00 Dose: Not Given Sennosides (Senokot) 17.2 mg PO Q12H PRN PRN Reason: Moderate Constipation Allergies Allergy/AdvReac Type Severity Reaction Status Date / Time penicillin G Allergy Mild RASH Verified 07/25/18 08:14 Home Medications Medication Instructions Recorded Confirmed Type [id number]-onp-OC-lycopen-lutein 1 tab PO DAILY 07/25/18 07/25/18 History [Centrum Silver Men] warfarin [Coumadin] 10 mg PO DAILY 07/25/18 07/25/18 History Exam Vital signs: Vital Signs 07/25/18 08:10 07/25/18 09:23 07/25/18 11:22 Temperature 97.9 F Pulse Rate 67 77 64 Respiratory Rate 17 18 16 Blood Pressure 135/75 131/89 132/74 Pulse Oximetry 98 97 98 07/25/18 12:00 07/25/18 16:00 07/25/18 20:00 Temperature 96.5 F L 98 F 96.2 F L Pulse Rate 52 L 68 52 L Respiratory Rate 20 18 20 Blood Pressure 135/91 H 120/80 117/76 Pulse Oximetry 97 96 07/26/18 00:00 Temperature 97.4 F L Pulse Rate 63 Respiratory Rate 20 Blood Pressure 114/61 Pulse Oximetry 95 Intake & Output 07/25/18 07/26/18 07/26/18 18:59 06:59 18:59 Intake Total 150 / 150 1420 / 1420 Output Total 600 / 600 800 / 800 Balance -450 / -450 620 / 620 Weight 83 kg 84.5 kg Intake: IV 150 / 150 1000 / 1000 NS Inj 1,000 ML @ 100 mls/hr IV 1000 / 1000 .CONT .Q10H [facility] Rx#:[id number] Kcentra Inj 4,000 UNIT In Bag/ 150 / 150 Syringe 1 EACH @ 500 mls/hr IV. SIG ONCE ONE Rx#:[id number] Oral 420 / 420 Output: Urine 600 / 600 800 / 800 Other: # Voids 3 Weight On Admission 83 kg Results - Labs Result Diagrams: 07/26/18 05:15 07/26/18 05:15 Labs: Laboratory Results - last 24 hr 07/25/18 07/25/18 07/25/18 09:00 09:00 09:00 CBC w Diff Auto diff final WBC 7.8 RBC 4.73 Hgb 13.9 Hct 41.3 MCV 87.5 MCH 29.4 MCHC 33.5 RDW 13.9 Plt Count 251 MPV 8.9 Neut % (Auto) 60.8 Lymph % (Auto) 22.4 [place] % (Auto) 10.1 H Eos % (Auto) 5.7 H Baso % (Auto) 1.0 Neut # (Auto) 4.7 Lymph # (Auto) 1.8 [place] # (Auto) 0.8 Eos # (Auto) 0.4 Baso # (Auto) 0.1 WBC Differential . Differential Comment . ESR PT 87.6 H INR 8.8 H* Sodium 140 Potassium 3.8 Chloride 109 H Carbon Dioxide 23.2 Anion Gap 8 BUN 19 H Creatinine 1.00 Estimated GFR 79 L POC Glucose Random Glucose 85 Calcium 8.1 L Prot Corrected Calcium Total Protein 07/25/18 07/25/18 07/25/18 09:00 16:57 17:14 CBC w Diff WBC RBC Hgb Hct MCV MCH MCHC RDW Plt Count MPV Neut % (Auto) Lymph % (Auto) [place] % (Auto) Eos % (Auto) Baso % (Auto) Neut # (Auto) Lymph # (Auto) [place] # (Auto) Eos # (Auto) Baso # (Auto) WBC Differential Differential Comment ESR 1 PT 15.1 H D INR 1.5 Sodium Potassium Chloride Carbon Dioxide Anion Gap BUN Creatinine Estimated GFR POC Glucose 79 Random Glucose Calcium Prot Corrected Calcium Total Protein 07/26/18 07/26/18 07/26/18 05:15 05:15 05:15 CBC w Diff Auto diff final WBC 7.8 RBC 4.64 Hgb 13.5 Hct 40.2 MCV 86.7 MCH 29.0 MCHC 33.5 RDW 14.4 Plt Count 257 MPV 9.7 Neut % (Auto) 57.7 Lymph % (Auto) 25.7 [place] % (Auto) 10.5 H Eos % (Auto) 5.1 H Baso % (Auto) 1.0 Neut # (Auto) 4.5 Lymph # (Auto) 2.0 [place] # (Auto) 0.8 Eos # (Auto) 0.4 Baso # (Auto) 0.1 WBC Differential . Differential Comment . ESR PT 21.3 H INR 2.1 Sodium 145 Potassium 4.3 Chloride 113 H Carbon Dioxide 24.0 Anion Gap 8 BUN 24 H Creatinine 0.96 Estimated GFR 83 L POC Glucose Random Glucose 88 Calcium 7.3 L* D Prot Corrected Calcium 7.9 L Total Protein 6.0 L - Diagnostic results Imaging: Impressions Hand X-Ray 07/25/18 08:45 CONCLUSION: 1. No acute fracture or dislocation. 2. Soft tissue swelling in the region of the first and second metacarpals. Soft Tissue Ultrasound 07/25/18 11:16 CONCLUSION: 1. 2.4 x 1.2 x 1.8 cm lobulated complex hypoechoic collection/mass between the right first and second metacarpals dorsally consistent with probable focal hematoma. Mass would be less likely in this location. Caprini VTE Risk Assessment Caprini VTE Risk Assessment: Moderate/High Risk (score >= 2) Caprini Risk Assessment Model: Point Value = 1 Point Value = 2 Point Value = 3 Point Value = 5 Age 41-60 Minor surgery BMI > 25 kg/m2 Swollen legs Varicose veins or History of unexplained or recurrent spontaneous Oral contraceptives or hormone replacement Sepsis (< 1 month) Serious lung disease, including pneumonia (< 1 month) Abnormal pulmonary function Acute myocardial infarction Congestive heart failure (< 1 month) History of inflammatory bowel disease Medical patient at bed rest Age 61-74 Arthroscopic surgery Major open surgery (> 45 min) Laparoscopic surgery (> 45 min) Malignancy Confined to bed (> 72 hours) Immobilizing plaster cast Central venous access Age >= 75 History of VTE Family history of VTE Factor V Leiden Prothrombin [id number] Lupus anticoagulant Anticardiolipin antibodies Elevated serum homocysteine Heparin-induced thrombocytopenia Other congenital or acquired thrombophilia Stroke (< 1 month) Elective arthroplasty Hip, pelvis, or leg fracture Acute spinal cord injury (< 1 month) Prophylaxis Regimen: Total Risk Factor Score Risk Level Prophylaxis Regimen 0-1 Low Early ambulation 2 Moderate Order ONE of the following: *Sequential Compression Device (SCD) *Heparin 5000 units SQ BID 3-4 Higher Order ONE of the following medications: *Heparin 5000 units SQ TID *Enoxaparin/Lovenox 40 mg SQ daily (WT < 150 kg, CrCl > 30 mL/min) *Enoxaparin/Lovenox 30 mg SQ daily (WT < 150 kg, CrCl > 10-29 mL/min) *Enoxaparin/Lovenox 30 mg SQ BID (WT < 150 kg, CrCl > 30 mL/min) AND/OR *Sequential Compression Device (SCD) 5 or more Highest Order ONE of the following medications: *Heparin 5000 units SQ TID (Preferred with Epidurals) *Enoxaparin/Lovenox 40 mg SQ daily (WT < 150 kg, CrCl > 30 mL/min) *Enoxaparin/Lovenox 30 mg SQ daily (WT < 150 kg, CrCl > 10-29 mL/min) *Enoxaparin/Lovenox 30 mg SQ BID (WT < 150 kg, CrCl > 30 mL/min) AND *Sequential Compression Device (SCD) Assessment and Plan - Assessment and Plan Please see full dictated note. Patient seen at 7p 07/25 48y RHD M on coumadin for factor 5 leiden presents to ER with pain right hand and INR 8.8. Reversed with current INR 1.5. Patient reports significant improvement in his pain. Denies paresthesias. No evidence of compartment syndrome. Ok to eat dinner. Then NPO at midnight again for eval tomorrow. Likely no intervention required by hand surgery. Continue to observe closely.
[2018-07-26] MEDS: Sod Chloride 0.9% Inj 1,000 ML IV.CONT SCH ×3 (08:10→18:16)
[2018-07-26] MEDS: Senna/Docusate Sodium 8.6/50 MG Tablet PO SCH (08:12)
--- NOTE | 2018-07-26 08:53 | P.PNONC ---
Subjective Interval history: Patient seen and examined, vital signs, labs, medications, microsoft dynamics consultant notes reviewed. Subjectively; patient reports the swelling and pain in his right hand is significantly decreased when compared to yesterday. He tells me he is now able to move his fingers and make a fist. Yesterday he was unable to move his fingers. He denies significant complaints today. Denies overt bleeding. Objective Vital Signs/Intake & Output: Vital Signs 07/25/18 09:23 07/25/18 11:22 07/25/18 12:00 Temperature 96.5 F L Pulse Rate 77 64 52 L Respiratory Rate 18 16 20 Blood Pressure 131/89 132/74 135/91 H Pulse Oximetry 97 98 97 07/25/18 16:00 07/25/18 20:00 07/26/18 00:00 Temperature 98 F 96.2 F L 97.4 F L Pulse Rate 68 52 L 63 Respiratory Rate 18 20 20 Blood Pressure 120/80 117/76 114/61 Pulse Oximetry 96 95 07/26/18 08:00 Temperature 96.9 F L Pulse Rate 53 L Respiratory Rate 20 Blood Pressure 122/73 Pulse Oximetry 95 Intake & Output 07/25/18 07/26/18 07/26/18 18:59 06:59 18:59 Intake Total 150 / 150 1420 / 1420 Output Total 600 / 600 800 / 800 Balance -450 / -450 620 / 620 Weight 83 kg 84.5 kg Intake: IV 150 / 150 1000 / 1000 NS Inj 1,000 ML @ 100 mls/hr IV 1000 / 1000 .CONT .Q10H [facility] Rx#:[id number] Kcentra Inj 4,000 UNIT In Bag/ 150 / 150 Syringe 1 EACH @ 500 mls/hr IV. SIG ONCE ONE Rx#:[id number] Oral 420 / 420 Output: Urine 600 / 600 800 / 800 Other: # Voids 3 Weight On Admission 83 kg Result Diagrams: 07/26/18 05:15 07/26/18 05:15 Laboratory Results: Laboratory Results - last 24 hr 07/25/18 07/25/18 07/25/18 09:00 09:00 09:00 CBC w Diff Auto diff final WBC 7.8 RBC 4.73 Hgb 13.9 Hct 41.3 MCV 87.5 MCH 29.4 MCHC 33.5 RDW 13.9 Plt Count 251 MPV 8.9 Neut % (Auto) 60.8 Lymph % (Auto) 22.4 [place] % (Auto) 10.1 H Eos % (Auto) 5.7 H Baso % (Auto) 1.0 Neut # (Auto) 4.7 Lymph # (Auto) 1.8 [place] # (Auto) 0.8 Eos # (Auto) 0.4 Baso # (Auto) 0.1 WBC Differential . Differential Comment . ESR PT 87.6 H INR 8.8 H* Sodium 140 Potassium 3.8 Chloride 109 H Carbon Dioxide 23.2 Anion Gap 8 BUN 19 H Creatinine 1.00 Estimated GFR 79 L POC Glucose Random Glucose 85 Calcium 8.1 L Prot Corrected Calcium Total Protein 07/25/18 07/25/18 07/25/18 09:00 16:57 17:14 CBC w Diff WBC RBC Hgb Hct MCV MCH MCHC RDW Plt Count MPV Neut % (Auto) Lymph % (Auto) [place] % (Auto) Eos % (Auto) Baso % (Auto) Neut # (Auto) Lymph # (Auto) [place] # (Auto) Eos # (Auto) Baso # (Auto) WBC Differential Differential Comment ESR 1 PT 15.1 H D INR 1.5 Sodium Potassium Chloride Carbon Dioxide Anion Gap BUN Creatinine Estimated GFR POC Glucose 79 Random Glucose Calcium Prot Corrected Calcium Total Protein 07/26/18 07/26/18 07/26/18 05:15 05:15 05:15 CBC w Diff Auto diff final WBC 7.8 RBC 4.64 Hgb 13.5 Hct 40.2 MCV 86.7 MCH 29.0 MCHC 33.5 RDW 14.4 Plt Count 257 MPV 9.7 Neut % (Auto) 57.7 Lymph % (Auto) 25.7 [place] % (Auto) 10.5 H Eos % (Auto) 5.1 H Baso % (Auto) 1.0 Neut # (Auto) 4.5 Lymph # (Auto) 2.0 [place] # (Auto) 0.8 Eos # (Auto) 0.4 Baso # (Auto) 0.1 WBC Differential . Differential Comment . ESR PT 21.3 H INR 2.1 Sodium 145 Potassium 4.3 Chloride 113 H Carbon Dioxide 24.0 Anion Gap 8 BUN 24 H Creatinine 0.96 Estimated GFR 83 L POC Glucose Random Glucose 88 Calcium 7.3 L* D Prot Corrected Calcium 7.9 L Total Protein 6.0 L 09/21/18 08:09 CBC w Diff WBC RBC Hgb Hct MCV MCH MCHC RDW Plt Count MPV Neut % (Auto) Lymph % (Auto) [place] % (Auto) Eos % (Auto) Baso % (Auto) Neut # (Auto) Lymph # (Auto) [place] # (Auto) Eos # (Auto) Baso # (Auto) WBC Differential Differential Comment ESR PT INR Sodium Potassium Chloride Carbon Dioxide Anion Gap BUN Creatinine Estimated GFR POC Glucose 93 Random Glucose Calcium Prot Corrected Calcium Total Protein Imaging Studies: Impressions Hand X-Ray 07/25/18 08:45 CONCLUSION: 1. No acute fracture or dislocation. 2. Soft tissue swelling in the region of the first and second metacarpals. Soft Tissue Ultrasound 07/25/18 11:16 CONCLUSION: 1. 2.4 x 1.2 x 1.8 cm lobulated complex hypoechoic collection/mass between the right first and second metacarpals dorsally consistent with probable focal hematoma. Mass would be less likely in this location. Medications: Active Medications Generic Name Dose Route Start Last Admin Trade Name Freq PRN Reason Stop Dose Admin Hydrocodone Bitart/Acetaminophen 1 tab 07/25/18 11:12 07/25/18 21:56 [place] 7.5/325 PO 1 tab Q4H PRN Administration PAIN SCALE 6 TO 10 Sodium Chloride 1,000 mls @ 100 mls/hr 07/25/18 11:15 07/26/18 08:10 Ns Inj IV.CONT Not Given .Q10H [facility] Senna/Docusate Sodium 1 tab 07/25/18 21:00 07/26/18 08:12 Emilee-Colace PO Not Given BID [facility] Objective Remarks: GENERAL: Young/middle-aged male, laying in bed, no acute distress, well- nourished, well-developed patient. SKIN: Warm and dry. HEAD: Normocephalic. EYES: No scleral icterus. No injection or drainage. NECK: Supple, trachea midline. No JVD or lymphadenopathy. LYMPHATIC: No adenopathy. CARDIOVASCULAR: Regular rate and rhythm without murmurs. RESPIRATORY: Breath sounds equal bilaterally. No accessory muscle use. GASTROINTESTINAL: Abdomen soft, non-tender, nondistended. EXTREMITIES: Right hand evaluated, small area of swelling at the base of the thumb on the dorsal surface of the hand. Near complete range of motion of the fingers and thumb on flexion and extension. No significant erythema noted. MUSCULOSKELETAL: Adequate muscle tone. NEUROLOGICAL: No obvious focal deficit. Awake, alert, and oriented x3. PSYCHIATRIC: Appropriate mood and affect; insight and judgment normal. Assessment/Plan - Plan Mr. Villaseñor is a 48-year-old man who is well-known to me from outpatient practice, he has a history of factor V Leiden mutation, and persistently elevated antiphospholipid antibodies. He has had a history of recurrent arterial thromboses. In the spring 2012 he was found to have an arterial thrombosis of the right lower extremity, he had to undergo partial amputation of his right foot due to ischemia. Since then he has also had strokes while he was off anticoagulation. He had been on chronic anticoagulation with warfarin. Patient reports having injured his hand (right side) while at work in the last 2 days. He developed swelling and pain of the right hand with decreased range of motion. He came into the emergency department and was noted to have an INR greater than 8.5. Ultrasound of the right hand revealed likely hematoma. The patient was evaluated by hand surgery and was recommended conservative management and reevaluation. Recommendations: 1. Hematoma in right hand in the setting of supratherapeutic anticoagulation while on warfarin: Patient has history of arterial thromboses secondary to antiphospholipid antibodies which are positive and factor V Leiden mutation. He is at high risk for recurrent thromboses both venous and arterial. I would advise resumption of therapeutic anticoagulation once he is cleared by hand surgery. He had been on 10 mg warfarin daily in the outpatient setting. I would recommend initiating treatment at 7 mg p.o. daily at the time of discharge. I will coordinate outpatient PT/INR checks through my clinic after he is discharged.
--- NOTE | 2018-07-26 10:07 | MB ---
cc: Tona Carmona MD DATE: 07/25/2018 REASON FOR CONSULTATION: Swelling and pain, right hand. HISTORY OF PRESENT ILLNESS: Meng Crawford is a 48-year-old male with a past medical history significant for factor V Leiden. He takes Coumadin. He presents with worsening pain over the right hand for 1 day. The patient denies any injury. He denies any paresthesias. He reports significant improvement since being in the hospital since this morning. PAST MEDICAL HISTORY: Factor V Leiden and blood clots. PAST SURGICAL HISTORY: Appendectomy, inguinal hernia repair, amputation of the right foot. SOCIAL HISTORY: The patient does smoke cigarettes. Denies alcohol or drug use. PHYSICAL EXAMINATION: GENERAL: The patient is alert and oriented, appears comfortable. EXTREMITIES: Compartments are soft and compressible. The patient does have an area of swelling in the first webspace. No swelling in the thenar space. No significant large swelling on the dorsum of the hand. Sensation intact in the median and ulnar nerve distribution, 2+ radial pulse. Less than 2 second capillary refill to the fingers. No significant pain with passive range of motion of the fingers. LABORATORY DATA: INR 8.8, reversed down to 1.5. X-ray shows no evidence of fracture. ASSESSMENT AND PLAN: A 48-year-old male with likely a hematoma in the right first webspace due to the uncontrolled INR. He has had significant improvement. He may eat dinner. He should be n.p.o. again at midnight for evaluation in the morning, possible MRI. At this time, no indication for surgical intervention. He will be followed closely. Tona Carmona MD [facility]/semaj , 09:48 AM , 09:53 AM [place]
[2018-07-26 13:56] VITALS: RESP 19
--- NOTE | 2018-07-26 14:23 | P.PN ---
Subjective Interval history: Follow-up hematoma right hand. States he is much better able to make a fist. Minimal pain did not require narcotic today. He wants to go home. Per hematology, restart Coumadin at 7 mg daily if okay with hand surgery. Discussed with nursing Physical Exam Vital signs: Vital Signs 07/25/18 16:00 07/25/18 20:00 07/26/18 00:00 Temperature 98 F 96.2 F L 97.4 F L Pulse Rate 68 52 L 63 Respiratory Rate 18 20 20 Blood Pressure 120/80 117/76 114/61 Pulse Oximetry 96 95 07/26/18 08:00 07/26/18 12:00 Temperature 96.9 F L 97.1 F L Pulse Rate 53 L 65 Respiratory Rate 20 19 Blood Pressure 122/73 141/80 H Pulse Oximetry 95 95 Intake & Output 07/25/18 07/26/18 07/26/18 18:59 06:59 18:59 Intake Total 150 / 150 1420 / 1420 1000 / 1000 Output Total 600 / 600 800 / 800 300 / 300 Balance -450 / -450 620 / 620 700 / 700 Weight 83 kg 84.5 kg Intake: IV 150 / 150 1000 / 1000 1000 / 1000 NS Inj 1,000 ML @ 100 mls/hr IV 1000 / 1000 1000 / 1000 .CONT .Q10H FRANCES Rx#:[id number] Kcentra Inj 4,000 UNIT In Bag/ 150 / 150 Syringe 1 EACH @ 500 mls/hr IV. SIG ONCE ONE Rx#:[id number] Oral 420 / 420 0 / 0 Output: Urine 600 / 600 800 / 800 300 / 300 Other: # Voids 3 Date of Last Bowel Movement 07/25/18 Weight On Admission 83 kg Narrative: GENERAL: Well-developed and well-nourished in no distress SKIN: Warm and dry. CARDIOVASCULAR: Regular rate and rhythm. RESPIRATORY: No accessory muscle use. Clear to auscultation. Breath sounds equal bilaterally. GASTROINTESTINAL: Abdomen soft, non-tender, nondistended. MUSCULOSKELETAL: Extremities without clubbing, cyanosis, or edema. No obvious deformities. There is improved swelling and tenderness over the dorsum of right hand with slight redness over first MCP joint. No warmth NEUROLOGICAL: Awake and alert. No obvious cranial nerve deficits. Motor grossly within normal limits. Five out of 5 muscle strength in the arms and legs. Normal speech. PSYCHIATRIC: Appropriate mood and affect; insight and judgment normal. Results - Labs CBC & Chem 7: 07/26/18 05:15 07/26/18 05:15 Laboratory Results - last 24 hr 07/25/18 07/25/18 07/26/18 16:57 17:14 05:15 CBC w Diff Auto diff final WBC 7.8 RBC 4.64 Hgb 13.5 Hct 40.2 MCV 86.7 MCH 29.0 MCHC 33.5 RDW 14.4 Plt Count 257 MPV 9.7 Neut % (Auto) 57.7 Lymph % (Auto) 25.7 [place] % (Auto) 10.5 H Eos % (Auto) 5.1 H Baso % (Auto) 1.0 Neut # (Auto) 4.5 Lymph # (Auto) 2.0 [place] # (Auto) 0.8 Eos # (Auto) 0.4 Baso # (Auto) 0.1 WBC Differential . Differential Comment . PT 15.1 H D INR 1.5 Sodium Potassium Chloride Carbon Dioxide Anion Gap BUN Creatinine Estimated GFR POC Glucose 79 Random Glucose Calcium Prot Corrected Calcium Total Protein 07/26/18 07/26/18 07/26/18 05:15 05:15 08:09 CBC w Diff WBC RBC Hgb Hct MCV MCH MCHC RDW Plt Count MPV Neut % (Auto) Lymph % (Auto) [place] % (Auto) Eos % (Auto) Baso % (Auto) Neut # (Auto) Lymph # (Auto) [place] # (Auto) Eos # (Auto) Baso # (Auto) WBC Differential Differential Comment PT 21.3 H INR 2.1 Sodium 145 Potassium 4.3 Chloride 113 H Carbon Dioxide 24.0 Anion Gap 8 BUN 24 H Creatinine 0.96 Estimated GFR 83 L POC Glucose 93 Random Glucose 88 Calcium 7.3 L* D Prot Corrected Calcium 7.9 L Total Protein 6.0 L 07/26/18 11:55 CBC w Diff WBC RBC Hgb Hct MCV MCH MCHC RDW Plt Count MPV Neut % (Auto) Lymph % (Auto) [place] % (Auto) Eos % (Auto) Baso % (Auto) Neut # (Auto) Lymph # (Auto) [place] # (Auto) Eos # (Auto) Baso # (Auto) WBC Differential Differential Comment PT INR Sodium Potassium Chloride Carbon Dioxide Anion Gap BUN Creatinine Estimated GFR POC Glucose 97 Random Glucose Calcium Prot Corrected Calcium Total Protein Assessment and Plan - Plan This is a 48-year-old male with a history of 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 Denies trauma. Ultrasound shows hematoma and patient received K Centra INR of 8.8 Spontaneous hematoma right hand in a patient with hypercoagulable state on Coumadin. Improved. Patient feels pain and swelling much better from admission. Keep right hand elevated, continue pain management with Lortab and IV morphine. Counseled regarding narcotics. Hand surgery has been consulted, will see patient today to clear for discharge and resumption of Coumadin. Hematology also has been consulted. Coagulopathy on Coumadin initial INR of 8.8. Improved INR of 2 today. Patient received K Centra. Repeat INR keep between 2 and 3 Discharge Planning: Discharge patient to home Condition on discharge: Improved Regular Diet as tolerated Ad Eusebia activity Rx written:Coumadin 7 mg Qd Follow-up with primary care physician and Heme rpt INR 06/28/18 Discharge patient to home Condition on discharge: Improved Regular Diet as tolerated Ad Eusebia activity Rx written: Follow-up with primary care physician
[2018-07-26 16:54] VITALS: BP 131/85; PULSE 60; TEMP 97.2; O2SAT 19
== END 2018-07-26 18:34 | disposition home or self-care (01) ==
LOC: PHEFT 08:09 → PHEDA 10:58 → INTOOBSV 11:08 → PHEDA 11:46 → PH3 11:48
PROVIDERS: ADMIT Internal Medicine; ATTEND Internal Medicine